=== PATIENT | female | born 1980 | race Caucasian/White ===

== ENCOUNTER → 2017-03-31 | Outpatient (CLI) | payer BC ==
--- NOTE | 2017-04-01 08:59 | MM ---
Reason for exam: screening (asymptomatic). Last mammogram was performed 7 years and 9 months ago. History: Patient is nulliparous. Family history of breast cancer in mother at age 50 and breast cancer in maternal grandmother at age 34. Taking hormonal contraceptives for 18 years beginning at age 18. Physical Findings: A clinical breast exam by your physician is recommended on an annual basis and results should be correlated with mammographic findings. MG Screening Mammo w CAD Bilateral CC and MLO view(s) were taken. Prior study comparison: June 26, 2009, mammogram, performed at [facility]. The breast tissue is heterogeneously dense. This may lower the sensitivity of mammography. No significant changes when compared with prior studies. ASSESSMENT: Benign, BI-RAD 2 RECOMMENDATION: Routine screening mammogram of both breasts at age 42. Manage on a clinical basis with regard to pain.
== END | disposition home or self-care (01) ==
LOC: RADMAMWWP 17:04
PROVIDERS: ATTEND Family Medicine
DX: Z12.31 Encounter for screening mammogram for malignant neoplasm of breast (principal); Z80.3 Family history of malignant neoplasm of breast

== ENCOUNTER → 2017-05-26 | Outpatient (CLI) | payer BC ==
[2017-05-26 14:11] VITALS: BP 120/69; PULSE 86; RESP 20; TEMP 99; BMI 43.2
--- NOTE | 2017-05-26 14:35 | P.HPBAR ---
Bariatric H&P - History & Physicial H&P Date: 05/26/17 History & Physicial: Visit/CC: pursuing bariatric surgery Patient initial contact: February 2017 Initial weight: 116.21 kg Initial weight in pounds: 256.20 Height: 5 ft 4.5 in Initial BMI: 43.2 Last weight: Current weight: 116.21 kg Current weight in pounds: 256.20 Current BMI: 43.2 Twilight body weight (based on NIH guidelines): 55.565 kg Excess body weight loss: 0.0% The patient is a 36 year-old F who presents for Bariatric Assessment. Patient presents to the clinic to discuss bariatric surgery. She went to a seminar a few months ago. The seminar was put on by Dr. Mora. She is leaning toward sleeve gastrectomy but also considering bypass at this time. She has a tried a Tuesday of weight loss modalities without success. Her primary medical concern leading to her interest in bariatric surgery is PCO S. No diabetes or high blood pressure. No known sleep apnea. She is only had 3 episodes of reflux that she can recall. Denies DVT or dysphagia. She does have friable myalgia and takes Motrin for this. She does have coworkers who have done well with the sleeve gastrectomy. She requires 7 months of supervised weight loss. She is hoping the surgery can be performed in December. Review of Systems The patient denies any acute changes in vision or hearing, no dysphagia or odynophagia, no chest pain or shortness of breath, no dysuria or hematuria, no headache, no runny nose, no rectal bleeding or melena, no unexplained weight loss Past Medical History History of Any Multi-Drug Resistant Organisms: None Reported Smoking Status: Former smoker Surgical - Exam Vital Signs Temp Pulse Resp BP 99 F 86 20 120/69 05/26/17 13:49 05/26/17 13:49 05/26/17 13:49 05/26/17 13:49 Physical exam: General: Well-developed, well-nourished HEENT: Normocephalic, sclerae nonicteric Abdomen: Nontender, nondistended Extremities: No edema Neuro: Alert and oriented Bariatric Assessment & Plan (1) Morbid obesity Narrative/Plan: The patient will continue to carefully consider the options of sleeve gastrectomy and bypass. Both surgeries and there are associated risks and benefits were discussed in detail today. I encouraged her to consider a evaluation by Dr. Mora to discuss the options of gastric bypass. In the meanwhile will begin her 6 month supervised weight loss. We'll plan for appendectomy lab work and upper endoscopy. Tentatively plan EGD in October or November of next year. Status: Acute Bariatric Checklist Checklist: Plan: Checklist: EGD: 1. Hiatal hernia: 2. H. Pylori: HgbA1c: Vitamin D: Smoking: Former smoker Primary care physician referral: Dr Coreas Psychiatry clearance: Cardiology clearance: Sleep study: Diet journal: VTE risk score: VTE risk level: Rehab needs at discharge:
== END ==
LOC: BARWHC3 13:22
PROVIDERS: ATTEND Surgery
DX: Z48.815 Encounter for surgical aftercare following surgery on the digestive system (principal); E66.01 Morbid (severe) obesity due to excess calories; F17.200 Nicotine dependence, unspecified, uncomplicated; Z98.84 Bariatric surgery status
CPT/HCPCS: 99201

== ENCOUNTER → 2017-11-22 | Outpatient (CLI) | payer BC ==
[2017-11-22 15:02] VITALS: BP 126/73; PULSE 105; RESP 16; TEMP 98; BMI 42.7
--- NOTE | 2017-11-22 16:53 | P.BASOAP ---
Subjective Progress Note Date: 11/22/17 Principal diagnosis: Morbid obesity Patient seen preoperatively for sleeve gastrectomy. Upper endoscopy is scheduled on 12/02. Dietary class scheduled on 11/28. Otherwise the patient seems to be prepared to schedule surgery. She is requesting 12/23. Objective - Vital Signs Vital signs: Vital Signs Temp 98 F 11/22/17 15:00 Pulse 105 H 11/22/17 15:00 Resp 16 11/22/17 15:00 BP 126/73 11/22/17 15:00 Pulse Ox Intake & Output 11/21/17 11/22/17 11/22/17 18:59 06:59 18:59 Weight 114.759 kg - Exam Abdomen: Soft, nontender, nondistended Assessment/Plan (1) Morbid obesity Narrative/Plan: Await upper endoscopy. Will tentatively schedule sleeve gastrectomy on 12/23. Surgical consent form and associated risks were reviewed in detail. All questions were answered. Plan: Date: 11/22/17 Initial Weight: 116.21 kg Initial BMI: 43.2 Current Weight: 114.759 kg Current BMI: 42.7 Type of Surgery: Total Volume in Band: Previous Volume: Volume Removed: Volume Added: Band Size:
== END ==
LOC: BARWHC3 13:44
PROVIDERS: ATTEND Surgery
DX: E66.01 Morbid (severe) obesity due to excess calories (principal); Z68.41 Body mass index [BMI] 40.0-44.9, adult
CPT/HCPCS: 99211

== ENCOUNTER → 2017-11-28 | Outpatient (CLI) | payer BC ==
[2017-11-28 08:58] VITALS: BMI 42.1
== END | disposition home or self-care (01) ==
LOC: BARWHC3 08:30
PROVIDERS: ATTEND Surgery
DX: E66.01 Morbid (severe) obesity due to excess calories (principal)
CPT/HCPCS: 97804

== ENCOUNTER → 2017-11-28 | Outpatient (CLI) | payer BC ==
[2017-11-28 13:17] LABS: Basophils % (A) 0 %; Eosinophils # (A) 0.1 k/uL (0-0.7); Eosinophils % (A) 1 %; HCT 41.4 % (34.0-46.0); HGB 13.4 gm/dL (11.4-16.0); Lymphocytes # (A) 3.2 k/uL (1.0-4.8); Lymphocytes % (A) 25 %; MCH 27.4 pg (25.0-35.0); MCHC 32.5 g/dL (31.0-37.0); MCV 84.2 fL (80.0-100.0); Mean Platelet Volume 6.6; Monocytes # (A) 0.4 k/uL (0-1.0); Monocytes % (A) 3 %; Neutrophils # (A) 8.8 k/uL (1.3-7.7); Neutrophils % (A) 70 %; Platelet Count 374 k/uL (150-450); RBC 4.91 m/uL (3.80-5.40); RDW 14.2 % (11.5-15.5); WBC 12.7 k/uL (3.8-10.6)
[2017-11-28 13:21] LABS: ALT 32 U/L (9-52); AST 21 U/L (14-36); Albumin 4.4 g/dL (3.5-5.0); Alkaline Phosphatase 90 U/L (38-126); Anion Gap 10 mmol/L; Blood Urea Nitrogen 13 mg/dL (7-17); Calcium 10.8 mg/dL (8.4-10.2); Carbon Dioxide 29 mmol/L (22-30); Chloride 101 mmol/L (98-107); Glucose 79 mg/dL (74-99); Potassium 4.9 mmol/L (3.5-5.1); Sodium 140 mmol/L (137-145); Total Bilirubin 0.3 mg/dL (0.2-1.3); Total Protein 7.6 g/dL (6.3-8.2)
== END | disposition home or self-care (01) ==
LOC: LABPAT 12:41
PROVIDERS: ATTEND Surgery
DX: Z01.812 Encounter for preprocedural laboratory examination (principal); Z01.818 Encounter for other preprocedural examination
CPT/HCPCS: 36415; 80053; 85025; 93005

== ENCOUNTER 2017-12-02 07:41 | Day surgery (SDC) | payer BC ==
[2017-11-29 13:12] VITALS: BMI 44.1
[~2017-12-02 07:41] MED LIST: LACTATED RINGERS 1,000 ML IV SCH
[2017-12-02 08:22] VITALS: RESP 18; TEMP 98.5
[2017-12-02] MEDS ORDERED: LIDOCAINE 1% INJ 10MG/ML (20 ML MDV) ONE (09:44)
[2017-12-02] MEDS ORDERED: PROPOFOL 10 MG/ML 20 ML VIAL IV ONE (09:44)
--- NOTE | 2017-12-02 09:47 | P.GSHP ---
History of Present Illness H&P Date: 12/02/17 Chief Complaint: GERD, obesity Patient here today for upper endoscopy. She has had a few episodes of reflux in the past. She is scheduled for sleeve gastrectomy on 12/23. Denies dysphagia. Past Medical History Past Medical History: Fibromyalgia, Hyperlipidemia Additional Past Medical History / Comment(s): PCOS History of Any Multi-Drug Resistant Organisms: None Reported Past Surgical History: No Surgical Hx Reported Past Anesthesia/Blood Transfusion Reactions: No Reported Reaction Additional Past Anesthesia/Blood Transfusion Reaction / Comment(s): PATIENT HAS NEVER HAD ANESTHESIA IN THE PAST Smoking Status: Former smoker - Past Family History Mother Family Medical History: No Reported History Medications and Allergies Home Medications Medication Instructions Recorded Confirmed Type Citalopram Hydrobromide [CeleXA] 20 mg PO HS 11/29/17 12/02/17 History Ergocalciferol (Vitamin D2) 50,000 units PO WE 11/29/17 12/02/17 History [Vitamin D2] Fexofenadine HCl [Anel Allergy] 180 mg PO HS 11/29/17 12/02/17 History Ibuprofen [Motrin] 800 mg PO TID 11/29/17 12/02/17 History Norgestimate-Ethinyl Estradiol 1 tab PO HS 11/29/17 12/02/17 History [Sprintec 28 Day Tablet] Simvastatin [Zocor] 10 mg PO HS 11/29/17 12/02/17 History Spironolactone [Aldactone] 25 mg PO HS 11/29/17 12/02/17 History lamoTRIgine [LaMICtal Odt] 100 mg PO HS 11/29/17 12/02/17 History Allergies Allergy/AdvReac Type Severity Reaction Status Date / Time No Known Allergies Allergy Verified 12/02/17 08:23 Surgical - Exam Vital Signs Temp Pulse Resp BP Pulse Ox 98.5 F 85 18 119/79 94 L 12/02/17 08:21 12/02/17 08:21 12/02/17 08:21 12/02/17 08:21 12/02/17 08:21 Physical exam: General: Well-developed, well-nourished HEENT: Normocephalic, sclerae nonicteric Abdomen: Nontender, nondistended Extremities: No edema Neuro: Alert and oriented Assessment and Plan (1) GERD (gastroesophageal reflux disease) Narrative/Plan: Will proceed with upper endoscopy at this time. Current Visit: Yes Status: Acute Code(s): K21.9 - GASTRO-ESOPHAGEAL REFLUX DISEASE WITHOUT ESOPHAGITIS SNOMED Code(s): 851520852
--- NOTE | 2017-12-02 09:57 | P.PCN ---
Date of Procedure: 12/02/17 Procedure(s) Performed: Preoperative Dx: GERD, presurgical Postoperative Dx: Mild gastritis Procedure: EGD with Bx Anesthesia: Sedation Endoscopist: Dr. Gomes Specimens: Antrum Endoscopic Procedure: The patient was on the endoscopy table in the left decubitus position. The Olympus gastroscope was inserted into the oropharynx and passed under direct visualization to the region of the third portion of the duodenum. From that point the scope was slowly withdrawn inspecting all surfaces carefully. There were no neoplastic inflammatory or polypoid lesions throughout the duodenum. The pylorus was widely patent. The stomach was carefully inspected. There was mild gastritis present. A biopsy of the antrum took place to rule out H. pylori. Retroflexion revealed a normal hiatus. The esophagus was then carefully examined. There were no neoplastic inflammatory or polypoid lesions throughout the visualized esophagus. The patient was then taken to the recovery room in stable condition per anesthesia guidelines. Recommendations: Await biopsies results. Proceed with sleeve gastrectomy.
[2017-12-02 10:43] VITALS: BP 109/69; PULSE 80
== END 2017-12-02 10:45 | disposition home or self-care (01) ==
LOC: ORWHC2ENDO 07:41
PROVIDERS: ATTEND Surgery
DX: K21.9 Gastro-esophageal reflux disease without esophagitis (principal); E66.9 Obesity, unspecified; E78.5 Hyperlipidemia, unspecified; M79.7 Fibromyalgia; E28.2 Polycystic ovarian syndrome; F31.9 Bipolar disorder, unspecified; Z87.891 Personal history of nicotine dependence; Z79.899 Other long term (current) drug therapy; Z68.41 Body mass index [BMI] 40.0-44.9, adult
CPT/HCPCS: 81025; 88305; 43239; J2001; J2704

== ENCOUNTER 2017-12-23 08:41 | Inpatient (IN) | payer BC ==
[~2017-12-23 08:41] MED LIST changes: +DEXAMETHASONE SOD PHOSPHATE 10 MG/ML 1 ML VIAL IV ONE; +ENOXAPARIN 40 MG/0.4 ML SYRINGE SQ ONE; -LACTATED RINGERS 1,000 ML IV SCH; +MIDAZOLAM 2 MG/2 ML VIAL IV PRN; +ONDANSETRON 4 MG/2 ML VIAL IVP ONE; +SCOPOLAMINE 1.5MG/72HR PATCH TRANSDERM ONE; +ceFAZolin IN SWFI 2 GM/20 ML SYRINGE IVP ONE
[2017-12-23] MEDS: LACTATED RINGERS 1,000 ML IV SCH (10:11)
--- NOTE | 2017-12-23 10:19 | P.GSHP ---
History of Present Illness H&P Date: 12/23/17 Chief Complaint: Morbid obesity 37-year-old female known to our service. Here today for sleeve gastrectomy. Patient has a history of PCOS. Recent upper endoscopy showed mild gastritis. No history of DVT or dysphagia. Please refer to bariatric H&P for additional details. Past Medical History Past Medical History: Fibromyalgia Additional Past Medical History / Comment(s): PCOS History of Any Multi-Drug Resistant Organisms: None Reported Past Surgical History: No Surgical Hx Reported Additional Past Surgical History / Comment(s): EGD Past Anesthesia/Blood Transfusion Reactions: No Reported Reaction Additional Past Anesthesia/Blood Transfusion Reaction / Comment(s): PATIENT HAS NEVER HAD ANESTHESIA IN THE PAST Smoking Status: Former smoker - Past Family History Mother Family Medical History: No Reported History Medications and Allergies Home Medications Medication Instructions Recorded Confirmed Type Citalopram Hydrobromide [CeleXA] 20 mg PO HS 11/29/17 12/23/17 History Ergocalciferol (Vitamin D2) 50,000 units PO WE 11/29/17 12/23/17 History [Vitamin D2] Fexofenadine HCl [Anel Allergy] 180 mg PO HS 11/29/17 12/23/17 History Ibuprofen [Motrin] 800 mg PO TID 11/29/17 12/23/17 History Norgestimate-Ethinyl Estradiol 1 tab PO HS 11/29/17 12/23/17 History [Sprintec 28 Day Tablet] Simvastatin [Zocor] 10 mg PO HS 11/29/17 12/23/17 History Spironolactone [Aldactone] 25 mg PO HS 11/29/17 12/23/17 History lamoTRIgine [LaMICtal Odt] 100 mg PO HS 11/29/17 12/23/17 History Acetaminophen Tab [Tylenol Tab] 500 mg PO Q6H PRN 12/23/17 12/23/17 History Allergies Allergy/AdvReac Type Severity Reaction Status Date / Time adhesive tape AdvReac redness Verified 12/23/17 10:00 Surgical - Exam Vital Signs Temp Pulse Resp BP Pulse Ox 97.8 F 79 16 125/77 93 L 12/23/17 10:12 12/23/17 10:12 12/23/17 10:12 12/23/17 10:12 12/23/17 10:12 Physical exam: General: Well-developed, well-nourished HEENT: Normocephalic, sclerae nonicteric Abdomen: Nontender, nondistended Extremities: No edema Neuro: Alert and oriented Assessment and Plan (1) Morbid obesity Narrative/Plan: Will proceed with sleeve gastrectomy. Risks of bleeding, infection, stenosis, leak, abscess, fistula, peritonitis, poor weight loss, reflux, DVT, OK, and . Patient understands and wishes to proceed. Current Visit: No Status: Acute Code(s): E66.01 - MORBID (SEVERE) OBESITY DUE TO EXCESS CALORIES SNOMED Code(s): 878722579
[2017-12-23] MEDS ORDERED: BUPIVACAINE (PF) 0.25% 30 ML VIAL SQ ONE (10:45)
[2017-12-23] MEDS ORDERED: NEOSTIGMINE 1 MG/ML 10 ML VIAL ONE (10:46)
[2017-12-23] MEDS ORDERED: KETOROLAC 30 MG/ML 1 ML VIAL ONE (10:46)
[2017-12-23] MEDS ORDERED: MIDAZOLAM 2 MG/2 ML VIAL ONE (10:46)
[2017-12-23] MEDS ORDERED: SUCCINYLCHOLINE CHLORIDE 100 MG/5 ML SYR IV ONE (10:46)
[2017-12-23] MEDS ORDERED: PROPOFOL 10 MG/ML 20 ML VIAL IV ONE (10:46)
[2017-12-23] MEDS ORDERED: ceFAZolin IN SWFI 2 GM/20 ML SYRINGE IVP ONE ×2 (10:46→10:48)
[2017-12-23] MEDS ORDERED: ROCURONIUM BROMIDE 10 MG/ML 10 ML VIAL IV ONE (10:46)
[2017-12-23] MEDS ORDERED: fentaNYL (PF) 50 MCG/ML 2 ML AMP ONE (10:46)
[2017-12-23] MEDS ORDERED: GLYCOPYRROLATE 0.2 MG/ML 2 ML VIAL ONE (10:46)
[2017-12-23] MEDS ORDERED: LACTATED RINGERS 1,000 ML IV ONE (12:00)
[2017-12-23] MEDS ORDERED: ONDANSETRON 4 MG/2 ML VIAL IVP PRN (12:43)
[2017-12-23] MEDS ORDERED: NALOXONE 0.4 MG/ML 1 ML VIAL IV PRN (12:43)
--- NOTE | 2017-12-23 12:43 | P.OP ---
Date of Procedure: 12/23/17 Procedure(s) Performed: PREOPERATIVE DIAGNOSIS: Morbid obesity, PCOS POSTOPERATIVE DIAGNOSIS: Same PROCEDURE: Laparoscopic sleeve gastrectomy SURGEON: Mireya EBL: Minimal ANESTHESIA: General COMPLICATIONS: None OPERATIVE PROCEDURE: Patient was placed in the operating table in the supine position. She was placed under general anesthesia at that time. The abdomen was prepped and draped in sterile fashion after the patient was placed in lithotomy. A 5 mm optical trocar was used to enter the abdominal cavity in the left upper quadrant. Insufflation took place to 15 millimeters mercury. An additional right subxiphoid 5 mm trocar was then placed under direct visualization and then removed. 2 additional 5 mm trochars were placed in the right upper quadrant and left upper quadrant under direct visualization and a 15 mm trocar in the supraumbilical location. The liver was retracted using a medium Jasvir liver retractor through the right subxiphoid trocar site. The hiatus was inspected. The patient had no visible hiatal hernia At that point I moved to the mid aspect of the greater curvature the stomach. The short gastric vasculature was divided using a LigaSure device proximally. I then switched and divided the short gastrics distally to a 3-4 cm from the pylorus. The dissection took place up to the left diaphragmatic crura at that point. The posterior short gastrics were likewise divided using the LigaSure device. Once the stomach was fully mobilized the blunt tipped 40-Latvian bougie dilator was advanced into the stomach and advanced all the way to the prepyloric location. A black echelon 60 stapler was utilized and fired tangentially across the antrum taking care to avoid narrowing at the incisura angularis. Subsequent firings of the stapler took place. A total of 4 green echelon 60 staplers with seam guard took place proximally staying on the outer edge of our dilator. Once we reached the most proximal portion of the stomach a single firing of the gold echelon 60 stapler without seen guard took place. The oral gastric tube was reinserted. The stomach was insufflated with approximately 100 mL of methylene blue. No evidence of leak or obstruction was seen. The distal aspect of the sleeve was then reapproximated to the gastrosplenic and gastrocolic ligament using a short running 2-0 strata fix suture. This was done to prevent kinking or twisting of the sleeve. It should be noted that along the staple line there were 2-3 small areas of bleeding controlled using the 12 mm clipper. The stomach remnant was removed from the 15 mm trocar site without difficulty. The fascia at the 15 more site was closed using interrupted 0 Vicryl sutures with the laparoscopic suture passer and Jose Marika technique. The insufflation was evacuated. The skin at all 5 incisions were closed using 4-0 Monocryl sutures. Steri-Strips and sterile dressings were then applied. DISPOSITION: Stable to recovery room
[2017-12-23] MEDS ORDERED: diphenhydrAMINE 50 MG/ML 1 ML VIAL IVP PRN (12:49)
[2017-12-23] MEDS ORDERED: SIMETHICONE 40 MG/0.6 ML DROPS 2,000 MG/30 ML BOTTLE PO PRN (12:49)
[2017-12-23] MEDS: fentaNYL (PF) 50 MCG/ML 2 ML AMP IV PRN ×4 (13:00→13:25)
[2017-12-23 13:07] VITALS: BMI 42.3
[2017-12-23] MEDS ORDERED: MEPERIDINE 50 MG/ML SYRINGE IVP ONE (13:38)
[2017-12-23] MEDS: ACETAMINOPHEN IV (For NPO) 1,000 MG in EMPTY BAG 1 BAG IVPB ONE ×2 (13:45→14:00)
[2017-12-23] MEDS: 0.9% NACL WITH KCL 20 MEQ/L 1,000 ML IV SCH ×2 (14:33→22:48)
[2017-12-23] MEDS: MORPHINE SULFATE 4MG/4ML SYRG IVP PRN ×3 (14:35→22:48)
[2017-12-23] MEDS: KETOROLAC 30 MG/ML 1 ML VIAL IVP SCH ×2 (14:36→17:16)
[2017-12-23] MEDS: ALBUTEROL NEBULIZED 2.5 MG/3 ML INHALATION SCH ×2 (16:22→20:39)
[2017-12-23] MEDS: HYOSCYAMINE ORAL DROPS 1.875 MG/15 ML BOTTLE PO PRN (16:36)
[2017-12-24] MEDS: KETOROLAC 30 MG/ML 1 ML VIAL IVP SCH ×5 (00:41→23:08)
[2017-12-24] MEDS: 0.9% NACL WITH KCL 20 MEQ/L 1,000 ML IV SCH (03:16)
[2017-12-24] MEDS: LACTATED RINGERS 1,000 ML IV SCH (05:08)
[2017-12-24] MEDS: ALBUTEROL NEBULIZED 2.5 MG/3 ML INHALATION SCH ×4 (07:38→20:31)
[2017-12-24 07:56] LABS: Anion Gap 11 mmol/L; Blood Urea Nitrogen 10 mg/dL (7-17); Calcium 8.7 mg/dL (8.4-10.2); Carbon Dioxide 26 mmol/L (22-30); Chloride 104 mmol/L (98-107); Phosphorus 3.2 mg/dL (2.5-4.5); Potassium 4.8 mmol/L (3.5-5.1); Sodium 141 mmol/L (137-145)
[2017-12-24 07:59] LABS: Basophils % (A) 0 %; Eosinophils % (A) 0 %; HCT 38.5 % (34.0-46.0); HGB 12.4 gm/dL (11.4-16.0); Lymphocytes # (A) 2.7 k/uL (1.0-4.8); Lymphocytes % (A) 19 %; MCH 26.7 pg (25.0-35.0); MCHC 32.1 g/dL (31.0-37.0); MCV 83.2 fL (80.0-100.0); Mean Platelet Volume 6.6; Monocytes # (A) 0.7 k/uL (0-1.0); Monocytes % (A) 5 %; Neutrophils # (A) 10.6 k/uL (1.3-7.7); Neutrophils % (A) 75 %; Platelet Count 334 k/uL (150-450); RBC 4.63 m/uL (3.80-5.40); RDW 13.5 % (11.5-15.5)
--- NOTE | 2017-12-24 08:28 | FL ---
EXAMINATION TYPE: FL UGI DATE OF EXAM ORDERED: 12/24/2017 8:25 AM HISTORY: Status post gastric sleeve procedure. COMPARISON: None. FINDINGS: The patient drank contrast with ease. There was prompt egress of contrast from the esophag us into the gastric sleeve. Ligament of Treitz is in normal location. There is no evidence of obstruc tion or significant free air. IMPRESSION: STATUS POST GASTRIC SLEEVE PROCEDURE.
[2017-12-24] MEDS: PANTOPRAZOLE 40 MG/10 ML VIAL IV SCH (08:51)
[2017-12-24] MEDS: ENOXAPARIN 40 MG/0.4 ML SYRINGE SQ SCH ×2 (08:51→21:05)
[2017-12-24] MEDS: MORPHINE SULFATE 4MG/4ML SYRG IVP PRN (09:42)
[2017-12-24] MEDS ORDERED: HYDROcodone/APAP 7.5-325MG 1 EACH TAB PO PRN (11:19)
--- NOTE | 2017-12-24 11:39 | P.PN ---
Progress Note - Text Progress Note Date: 12/24/17 The patient resting comfortably in her bed. She has had her swallow esophagram performed this morning. There is known to oblique obstruction. The patient is complaining about the morphine giving her a funny feeling. She is wishing switched to Toradol. Her white count 14. Vital signs are stable. Her abdomen soft. Incision sites are clean and intact. Patient will try Toradol for pain control. She did placed a clear liquid diet. She'll be discharged home tomorrow.
[2017-12-24] MEDS: 1: MVI, ADULT NO.4 WITH VIT K 10 ML, THIAMINE 100 MG, FOLIC ACID 1 MG, POTASSIUM CHLORID IV SCH ×12 (11:53→22:32)
[2017-12-24] MEDS ORDERED: ACETAMINOPHEN TAB 500 MG TAB PO PRN (15:59)
--- NOTE | 2017-12-24 16:59 | P.CONS ---
History of Present Illness - Reason for Consult Leukocytosis - History of Present Illness Patient is a very pleasant 37-year-old female admitted for laparoscopic sleeve gastrectomy patient successfully underwent surgery postoperative day one patient denied any vomiting fever chills does have some belching and nausea denied any significant abdominal discomfort patient denied dysuria cough runny nose. Patient is on Lamictal for bipolar disorder and Celexa for depression and bipolar. Patient also on OC pills and all that on for PCO S. Review of Systems REVIEW OF SYSTEMS: CONSTITUTIONAL: No fever, no malaise, no fatigue. HEENT: No recent visual problems or hearing problems. Denied any sore throat. CARDIOVASCULAR: No chest pain, orthopnea, PND, no palpitations, no syncope. PULMONARY: No shortness of breath, no cough, no hemoptysis. GASTROINTESTINAL: No diarrhea, no nausea, no vomiting, no abdominal pain. Normoactive bowel sounds. NEUROLOGICAL: No headaches, no weakness, no numbness. HEMATOLOGICAL: Denies any bleeding or petechiae. GENITOURINARY: Denies any burning micturition, frequency, or urgency. MUSCULOSKELETAL/RHEUMATOLOGICAL: Denies any joint pain, swelling, or any muscle pain. ENDOCRINE: Denies any polyuria or polydipsia. The rest of the 14-point review of systems is negative. Past Medical History Past Medical History: Fibromyalgia Additional Past Medical History / Comment(s): PCOS History of Any Multi-Drug Resistant Organisms: None Reported Past Surgical History: No Surgical Hx Reported Additional Past Surgical History / Comment(s): EGD Past Anesthesia/Blood Transfusion Reactions: No Reported Reaction Additional Past Anesthesia/Blood Transfusion Reaction / Comm: PATIENT HAS NEVER HAD ANESTHESIA IN THE PAST Past Psychological History: No Psychological Hx Reported Smoking Status: Former smoker Past Alcohol Use History: None Reported Additional Past Alcohol Use History / Comment(s): QUIT SMOKING 11 YEARS AGO Past Drug Use History: None Reported - Past Family History Mother Family Medical History: No Reported History Medications and Allergies Home Medications Medication Instructions Recorded Confirmed Type Citalopram Hydrobromide [CeleXA] 20 mg PO HS 11/29/17 12/23/17 History Ergocalciferol (Vitamin D2) 50,000 units PO WE 11/29/17 12/23/17 History [Vitamin D2] Fexofenadine HCl [Anel Allergy] 180 mg PO HS 11/29/17 12/23/17 History Ibuprofen [Motrin] 800 mg PO TID 11/29/17 12/23/17 History Norgestimate-Ethinyl Estradiol 1 tab PO HS 11/29/17 12/23/17 History [Sprintec 28 Day Tablet] Simvastatin [Zocor] 10 mg PO HS 11/29/17 12/23/17 History Spironolactone [Aldactone] 25 mg PO HS 11/29/17 12/23/17 History lamoTRIgine [LaMICtal Odt] 100 mg PO HS 11/29/17 12/23/17 History Acetaminophen Tab [Tylenol Tab] 500 mg PO Q6H PRN 12/23/17 12/23/17 History Hydrocodone/Acetaminophen [Cherry 1 - 2 each PO Q4HR PRN #20 tab 12/23/17 Rx 5-325] Omeprazole [PriLOSEC] 20 mg PO AC-BRKFST #90 cap 12/23/17 Rx Allergies Allergy/AdvReac Type Severity Reaction Status Date / Time adhesive tape AdvReac redness Verified 12/23/17 13:28 Physical Exam Vitals: Vital Signs Temp Pulse Pulse Resp BP Pulse Ox 12/24/17 14:50 99 F 65 18 116/62 95 12/24/17 08:35 99.1 F 69 18 114/65 96 12/24/17 08:04 95 12/24/17 07:39 98 12/24/17 00:09 96 12/24/17 00:00 98.4 F 94 16 142/80 94 L 12/23/17 20:54 95 12/23/17 20:53 90 12/23/17 20:40 88 12/23/17 20:00 98.6 F 96 16 140/76 94 L Intake and Output 12/24/17 12/24/17 12/24/17 06:59 14:59 22:59 Intake Total 800 Output Total 225 Balance -225 800 Intake: Intake, IV Titration 800 Amount 0.9% NaCl with KCl 20 Meq 800 /l 1,000 ml @ 100 mls/hr IV .BY D[facility] Rx#: [id number] Output: Urine 225 Other: # Voids 0 Weight 108.4 kg PHYSICAL EXAMINATION: GENERAL: The patient is alert and oriented x3, not in any acute distress. Obese HEENT: Pupils are round and equally reacting to light. EOMI. No scleral icterus. No conjunctival pallor. Normocephalic, atraumatic. No pharyngeal erythema. No thyromegaly. CARDIOVASCULAR: S1 and S2 present. No murmurs, rubs, or gallops. PULMONARY: Chest is clear to auscultation, no wheezing or crackles. ABDOMEN: Soft, nontender, nondistended, normoactive bowel sounds. No palpable organomegaly. MUSCULOSKELETAL: No joint swelling or deformity. EXTREMITIES: No cyanosis, clubbing, or pedal edema. NEUROLOGICAL: Gross neurological examination did not reveal any focal deficits. SKIN: No rashes. Results CBC & Chem 7: 12/24/17 06:55 12/24/17 06:55 Labs: Abnormal Lab Results - Last 24 Hours (Table) 12/24/17 Range/Units 06:55 WBC 14.0 H (3.8-10.6) k/uL Neutrophils # 10.6 H (1.3-7.7) k/uL Assessment and Plan Plan: -Laparoscopic sleeve gastrectomy: Postoperative day 1, pain management and due to prophylaxis per primary service. -Leukocytosis without any signs or symptoms of infection probably reactive in nature, no further intervention at this time -Bipolar disorder patient will be resumed on Lamictal and Celexa. -Polycystic ovarian disease -Hyperlipidemia -Gastroesophageal reflux disease 4 omission chronic medical problems patient will be resumed on appropriate home medications
[2017-12-24] MEDS: HYOSCYAMINE ORAL DROPS 1.875 MG/15 ML BOTTLE PO PRN (18:04)
[2017-12-24] MEDS: ALPRAZolam 0.25 MG TAB PO PRN (18:13)
[2017-12-24] MEDS: ATORVASTATIN 10 MG TAB PO SCH (21:05)
[2017-12-24] MEDS: SPIRONOLACTONE 25 MG TAB PO SCH (21:05)
[2017-12-24] MEDS: CITALOPRAM HYDROBROMIDE 20 MG TAB PO SCH (21:05)
[2017-12-24] MEDS: LORATADINE 10 MG TAB PO SCH (21:05)
[2017-12-24] MEDS: lamoTRIgine 100 MG TAB PO SCH (21:05)
[2017-12-24] MEDS: NORGESTIMATE-ETHINYL ESTRADIOL 1 EACH TABLET PO SCH (21:12)
[2017-12-25] MEDS: KETOROLAC 30 MG/ML 1 ML VIAL IVP SCH ×2 (04:20→12:42)
[2017-12-25] MEDS: ALBUTEROL NEBULIZED 2.5 MG/3 ML INHALATION SCH ×4 (07:38→18:45)
[2017-12-25] MEDS ORDERED: BISACODYL 5 MG TABLET.DR PO PRN (08:00)
[2017-12-25] MEDS: Acetaminophen-Codeine 300-30mg TAB PO PRN ×3 (09:25→20:09)
[2017-12-25] MEDS: ENOXAPARIN 40 MG/0.4 ML SYRINGE SQ SCH ×2 (09:26→20:11)
[2017-12-25] MEDS: PANTOPRAZOLE 40 MG/10 ML VIAL IV SCH (09:26)
--- NOTE | 2017-12-25 10:41 | P.PN ---
Progress Note - Text Progress Note Date: 12/25/17 The patient states he feels better. She was requesting a different pain medication this morning. She was switched to Tylenol 3. She's had limited oral intake. On exam her vital signs are stable. Her abdomen soft. Status post sleeve gastric. Patient will remain in the hospital today. She is appears and blade and increase her oral intake.
[2017-12-25 11:16] VITALS: RESP 16
[2017-12-25] MEDS: 1: MVI, ADULT NO.4 WITH VIT K 10 ML, THIAMINE 100 MG, FOLIC ACID 1 MG, POTASSIUM CHLORID IV SCH ×12 (12:43→19:51)
[2017-12-25] MEDS: lamoTRIgine 100 MG TAB PO SCH (20:10)
[2017-12-25] MEDS: SPIRONOLACTONE 25 MG TAB PO SCH (20:10)
[2017-12-25] MEDS: CITALOPRAM HYDROBROMIDE 20 MG TAB PO SCH (20:10)
[2017-12-25] MEDS: ATORVASTATIN 10 MG TAB PO SCH (20:10)
[2017-12-25] MEDS: LORATADINE 10 MG TAB PO SCH (20:10)
[2017-12-25] MEDS: NORGESTIMATE-ETHINYL ESTRADIOL 1 EACH TABLET PO SCH (20:12)
[2017-12-26] MEDS: 1: MVI, ADULT NO.4 WITH VIT K 10 ML, THIAMINE 100 MG, FOLIC ACID 1 MG, POTASSIUM CHLORID IV SCH ×18 (01:38→14:24)
[2017-12-26] MEDS: ALBUTEROL NEBULIZED 2.5 MG/3 ML INHALATION SCH ×3 (08:14→16:14)
[2017-12-26] MEDS: ENOXAPARIN 40 MG/0.4 ML SYRINGE SQ SCH (10:05)
[2017-12-26] MEDS: PANTOPRAZOLE 40 MG/10 ML VIAL IV SCH (10:05)
[2017-12-26] MEDS: ALPRAZolam 0.25 MG TAB PO PRN (10:10)
[2017-12-26] MEDS: Acetaminophen-Codeine 300-30mg TAB PO PRN (11:25)
--- NOTE | 2017-12-26 13:22 | P.DS ---
<Carmen Kumar M - Last Filed: 12/26/17 13:10> Providers Date of admission: 12/23/17 08:41 Expected date of discharge: 12/26/17 Attending physician: Rehan Gomes Consults: 12/23/17 12:49 Consult Physician Routine Consulting Provider: Isael Taylor Consult Reason/Comments: Medical management Do you want consulting provider notified?: Yes Primary care physician: [facility] Course: 37-year-old female who presented on an elective admission to undergo a sleep gastrectomy for morbid obesity procedure was done on December 23. Patient had a swallow esophagram done postprocedure showed no obstruction. No leak. Postprocedure patient was not able to tolerate the morphine. Patient stated she felt nauseated decreased oral intake. The morphine was switched to Toradol. Patient stated felt better and was asking for different pain medication on the . This was switched to Tylenol No. 3 oral intake increased on December 26 was felt to be hemodynamically stable and appropriate to proceed with a discharge Pain medication effective for pain control Impression discharge diagnoses Morbid obesity BMI 42 A recent EGD showed mild gastritis Laparoscopic sleeve gastrectomy for morbid obesity done on December 23 The above impression and plan of care have been discussed and directed by signing physician. Carmen Kumar nurse practitioner acting as scribe for signing physician. Plan - Discharge Summary Discharge Rx Participant: Yes New Discharge Prescriptions: New Omeprazole [PriLOSEC] 20 mg PO AC-BRKFST #90 cap Acetaminophen-Codeine 300-30mg [Tylenol w/codeine #3] 1 each PO Q6HR PRN #15 tab PRN Reason: Pain Continue lamoTRIgine [LaMICtal Odt] 100 mg PO HS Fexofenadine HCl [Anel Allergy] 180 mg PO HS Simvastatin [Zocor] 10 mg PO HS Norgestimate-Ethinyl Estradiol [Sprintec 28 Day Tablet] 1 tab PO HS Citalopram Hydrobromide [CeleXA] 20 mg PO HS Spironolactone [Aldactone] 25 mg PO HS Ibuprofen [Motrin] 800 mg PO TID Ergocalciferol (Vitamin D2) [Vitamin D2] 50,000 units PO WE Acetaminophen Tab [Tylenol] 500 mg PO Q6H PRN PRN Reason: Pain Discharge Medication List Citalopram Hydrobromide [CeleXA] 20 mg PO HS 11/29/17 [History] Ergocalciferol (Vitamin D2) [Vitamin D2] 50,000 units PO WE 11/29/17 [History] Fexofenadine HCl [Anel Allergy] 180 mg PO HS 11/29/17 [History] Ibuprofen [Motrin] 800 mg PO TID 11/29/17 [History] Norgestimate-Ethinyl Estradiol [Sprintec 28 Day Tablet] 1 tab PO HS 11/29/17 [ History] Simvastatin [Zocor] 10 mg PO HS 11/29/17 [History] Spironolactone [Aldactone] 25 mg PO HS 11/29/17 [History] lamoTRIgine [LaMICtal Odt] 100 mg PO HS 11/29/17 [History] Acetaminophen Tab [Tylenol] 500 mg PO Q6H PRN 12/23/17 [History] Omeprazole [PriLOSEC] 20 mg PO AC-BRKFST #90 cap 12/23/17 [Rx] Acetaminophen-Codeine 300-30mg [Tylenol w/codeine #3] 1 each PO Q6HR PRN #15 tab 12/26/17 [Rx] Follow up Appointment(s)/Referral(s): [facility] [NON-STAFF] - 01/03/18 1:30 pm (Appointment set with Dr. Gomes) Activity/Diet/Wound Care/Special Instructions: No tub bath for six weeks. Shower daily. No lifting over 10 pounds for the next 6 weeks. Bariatric clear diet May use ice packs to surgical site. No driving while taking narcotic for pain. Discharge Disposition: HOME SELF-CARE <Rehan Gomes - Last Filed: 12/26/17 15:32> - Discharge Diagnosis(es) (1) Morbid obesity Current Visit: Yes Status: Acute Hospital Course: As above. Patient doing well at this time. Tolerating diet. Pain is well- controlled. We'll discharge home with Prilosec and Tylenol No. 3. Follow-up in the office in one week.
[2017-12-26 15:23] VITALS: BP 111/69; PULSE 70; TEMP 97.6
== END 2017-12-26 16:06 | disposition home or self-care (01) | DRG 621 ==
LOC: 2ORMAIN 08:41 → 3SUR 12:46
PROVIDERS: ADMIT Surgery; ATTEND Surgery
PROC: 0DB64Z3 Excision of Stomach, Percutaneous Endoscopic Approach, Vertical (ICD-10-PCS; principal; 2017-12-23 10:35)
DX: E66.01 Morbid (severe) obesity due to excess calories (principal); E28.2 Polycystic ovarian syndrome; Z68.41 Body mass index [BMI] 40.0-44.9, adult; K29.70 Gastritis, unspecified, without bleeding; M79.7 Fibromyalgia; F31.9 Bipolar disorder, unspecified; K21.9 Gastro-esophageal reflux disease without esophagitis; E78.5 Hyperlipidemia, unspecified; R11.0 Nausea; T40.2X5A Adverse effect of other opioids, initial encounter; Z79.899 Other long term (current) drug therapy; Z79.1 Long term (current) use of non-steroidal anti-inflammatories (NSAID); Z91.048 Other nonmedicinal substance allergy status; Z87.891 Personal history of nicotine dependence
CPT/HCPCS: 74240; 80051; 81025; 82310; 82565; 83735; 84100; 84520; 85025; 88307; 94640; 94760; 94762

== ENCOUNTER → 2018-01-03 | Outpatient (CLI) | payer BC ==
[2018-01-03 13:45] VITALS: BP 133/92; PULSE 111; RESP 16; BMI 38.3
[2018-01-03 14:19] VITALS: TEMP 98.9
--- NOTE | 2018-01-03 14:52 | P.BASOAP ---
Subjective Progress Note Date: 01/03/18 Principal diagnosis: Morbid obesity Patient had surgery approximately 1.5 weeks ago. She has had some nausea over the last 2 days. Denies any significant pain. She admits some mild discomfort at the umbilicus when she is leaning back. No fevers or chills. No vomiting. Had heartburn one time a few days ago. She took her PPI only once at that time and did not know this medication was to be taken daily. Heart rate today 111 although her heart rate preoperatively in November was 105. She is afebrile. She is taking and 60 g per day of protein and over 64 ounces of liquids. Most of her liquids in the form of water. She did return to work approximately one week postop feels tired at this time. Objective - Vital Signs Vital signs: Vital Signs Temp 98.9 F 01/03/18 13:42 Pulse 111 H 01/03/18 13:42 Resp 16 01/03/18 13:42 BP 133/92 01/03/18 13:42 Pulse Ox Intake & Output 01/02/18 01/03/18 01/03/18 18:59 06:59 18:59 Weight 102.965 kg - Exam Abdomen: Soft, nondistended, mild incisional tenderness, mild ecchymosis at incision sites and also at the Lovenox shot site in the right lower quadrant Assessment/Plan (1) Morbid obesity Narrative/Plan: Overall patient doing fairly well. We'll provide Zofran for symptoms of nausea. Patient will replace her water intake with Pedialyte or sports drink to provide better electrolyte balance. We'll keep her off of work until this coming Tuesday. We'll plan follow-up in 2 weeks. Patient will contact me with any persistent nausea or vomiting. Plan: Date: 01/03/18 Initial Weight: 116.21 kg Initial BMI: 43.2 Current Weight: 102.965 kg Current BMI: 38.3 Type of Surgery: Total Volume in Band: Previous Volume: Volume Removed: Volume Added: Band Size:
== END | disposition home or self-care (01) ==
LOC: BARWHC3 13:34
PROVIDERS: ATTEND Surgery
DX: E66.01 Morbid (severe) obesity due to excess calories (principal); Z68.38 Body mass index [BMI] 38.0-38.9, adult; Z71.3 Dietary counseling and surveillance
CPT/HCPCS: 97803; 99211

== ENCOUNTER → 2018-01-17 | Outpatient (CLI) | payer BC ==
[2018-01-17 15:31] VITALS: BP 128/70; PULSE 101; RESP 16; TEMP 98.4; BMI 37.7
--- NOTE | 2018-01-17 15:57 | P.BASOAP ---
Subjective Progress Note Date: 01/17/18 Principal diagnosis: Morbid obesity Patient doing well today. Denies pain. No nausea or vomiting. Tolerating 64 ounces of liquids per day. Actually is been taking an approximately 90 g of protein per day. Denies heartburn. Heart rate was 101 today. No fevers. She is having some issues with heavy menstrual cycle and also some degree of insomnia. Both of these issues she has struggled with in the past. Objective - Vital Signs Vital signs: Vital Signs Temp 98.4 F 01/17/18 15:29 Pulse 101 H 01/17/18 15:29 Resp 16 01/17/18 15:29 BP 128/70 01/17/18 15:29 Pulse Ox Intake & Output 01/16/18 01/17/18 01/17/18 18:59 06:59 18:59 Weight 101.151 kg - Exam Abdomen: Soft, nontender, nondistended, incisions clean and dry Assessment/Plan (1) Morbid obesity Narrative/Plan: Continue dietary and exercise regimen. Check one month's labs. Continue antiacids. Follow-up 1 month. Plan: Date: 01/17/18 Initial Weight: 116.21 kg Initial BMI: 43.2 Current Weight: 101.151 kg Current BMI: 37.7 Type of Surgery: Total Volume in Band: Previous Volume: Volume Removed: Volume Added: Band Size:
[2018-01-17 16:33] LABS: HCT 42.9 % (34.0-46.0); HGB 13.9 gm/dL (11.4-16.0); MCH 26.6 pg (25.0-35.0); MCHC 32.4 g/dL (31.0-37.0); MCV 82.1 fL (80.0-100.0); Mean Platelet Volume 6.6; Platelet Count 298 k/uL (150-450); RBC 5.23 m/uL (3.80-5.40); RDW 13.9 % (11.5-15.5); WBC 11.4 k/uL (3.8-10.6)
[2018-01-17 16:51] LABS: ALT 65 U/L (9-52); AST 36 U/L (14-36); Albumin 4.4 g/dL (3.5-5.0); Alkaline Phosphatase 92 U/L (38-126); Anion Gap 15 mmol/L; Blood Urea Nitrogen 16 mg/dL (7-17); Calcium 9.7 mg/dL (8.4-10.2); Carbon Dioxide 24 mmol/L (22-30); Chloride 103 mmol/L (98-107); Glucose 77 mg/dL (74-99); Potassium 4.2 mmol/L (3.5-5.1); Sodium 142 mmol/L (137-145); Total Bilirubin 0.5 mg/dL (0.2-1.3); Total Protein 7.3 g/dL (6.3-8.2)
[2018-01-18 00:55] LABS: Vitamin D 25 Hydroxy 28.1 ng/mL (30.0-100.0)
== END | disposition home or self-care (01) ==
LOC: BARWHC3 15:14
PROVIDERS: ATTEND Surgery
DX: E66.01 Morbid (severe) obesity due to excess calories (principal); K90.89 Other intestinal malabsorption; E55.9 Vitamin D deficiency, unspecified; Z68.37 Body mass index [BMI] 37.0-37.9, adult; Z71.3 Dietary counseling and surveillance
CPT/HCPCS: 80053; 82306; 82607; 83540; 84425; 85027; 97803; 99211

== ENCOUNTER 2018-01-20 21:06 | Emergency (ER) | payer BC ==
[2018-01-20] MEDS ORDERED: RX INFO: IV CONTRAST WAS GIVEN 1 EACH MISC MISCELLANE PRN (22:53)
[2018-01-20] MEDS ORDERED: IOPAMIDOL-300 CONTRAST 30 ML VIAL (ORAL USE) PO PRN (22:53)
[2018-01-20 23:05] LABS: Basophils % (A) 0 %; Eosinophils # (A) 0.1 k/uL (0-0.7); Eosinophils % (A) 1 %; HCT 42.5 % (34.0-46.0); HGB 13.6 gm/dL (11.4-16.0); Lymphocytes # (A) 3.4 k/uL (1.0-4.8); Lymphocytes % (A) 34 %; MCH 26.2 pg (25.0-35.0); MCHC 31.9 g/dL (31.0-37.0); Mean Platelet Volume 7.3; Monocytes # (A) 0.6 k/uL (0-1.0); Monocytes % (A) 6 %; Neutrophils # (A) 5.7 k/uL (1.3-7.7); Neutrophils % (A) 57 %; Platelet Count 282 k/uL (150-450); RBC 5.18 m/uL (3.80-5.40); RDW 14.1 % (11.5-15.5); WBC 9.9 k/uL (3.8-10.6)
[2018-01-20 23:10] LABS: Appearance,Urine Clear (Clear); Bacteria,Urine Rare /hpf; Bilirubin,Urine Negative (Negative); Blood,Urine Moderate (Negative); Color,Urine Yellow; Glucose,Urine (UA) Negative (Negative); Ketones,Urine Negative (Negative); Leukocyte Esterase,Urine Large (Negative); Mucus,Urine Rare /hpf; Nitrite,Urine Negative (Negative); Protein,Urine Negative (Negative); RBC,Urine 10 /hpf (0-5); Specific Gravity,Urine 1.015 (1.001-1.035); Squamous Epithelial Cell,Urine 3 /hpf (0-4); Urobilinogen,Urine <2.0 mg/dL (<2.0); WBC,Urine 35 /hpf (0-5)
[2018-01-20 23:13] LABS: ALT 60 U/L (9-52); AST 24 U/L (14-36); Albumin 4.4 g/dL (3.5-5.0); Alkaline Phosphatase 92 U/L (38-126); Amylase 48 U/L (30-110); Anion Gap 13 mmol/L; Blood Urea Nitrogen 18 mg/dL (7-17); Carbon Dioxide 26 mmol/L (22-30); Chloride 102 mmol/L (98-107); Glucose 82 mg/dL (74-99); Lipase 118 U/L (23-300); Sodium 141 mmol/L (137-145); Total Bilirubin 0.4 mg/dL (0.2-1.3); Total Protein 7.2 g/dL (6.3-8.2)
[2018-01-20] MEDS ORDERED: diphenhydrAMINE 50 MG/ML 1 ML VIAL IVP STA (23:33)
[2018-01-20] MEDS ORDERED: FAMOTIDINE 20 MG/2 ML VIAL IV STA (23:33)
[2018-01-20] MEDS ORDERED: methylPREDNISolone SOD SUCCI 125 MG/2 ML VIAL IV STA (23:33)
--- NOTE | 2018-01-20 23:41 | ED ---
Abdominal Pain HPI - General Chief Complaint: Abdominal Pain Stated Complaint: Abd pain Time Seen by Provider: 01/20/18 22:25 Source: patient Mode of arrival: ambulatory Limitations: no limitations - History of Present Illness Initial Comments: 37-year-old female patient presented to the emergency department today for evaluation of right-sided abdominal pain. Patient describes the pain is intense burning. Patient states that around 4:30 this morning her large dog jumped on her abdomen. Patient states that she did have gastric sleeve procedure with Dr. Gomes less than one month ago. Patient states that she has been eating and drinking throughout the day without difficulty. States that the pain has been gradually worsening. She is currently rating her pain at a 6 out of 10 on the pain scale. States that she does feel nauseated but has not vomited. She denies any known fevers or chills. Denies any constipation or diarrhea. Denies any hematuria, dysuria, urinary frequency, urinary urgency. Denies any chance of . - Related Data Home Medications Medication Instructions Recorded Confirmed Citalopram Hydrobromide [CeleXA] 20 mg PO HS 11/29/17 01/20/18 Fexofenadine HCl [Anel Allergy] 180 mg PO HS 11/29/17 01/20/18 Norgestimate-Ethinyl Estradiol 1 tab PO HS 11/29/17 01/20/18 [Sprintec 28 Day Tablet] Simvastatin [Zocor] 10 mg PO HS 11/29/17 01/20/18 Spironolactone [Aldactone] 25 mg PO HS 11/29/17 01/20/18 lamoTRIgine [LaMICtal Odt] 100 mg PO HS 11/29/17 01/20/18 Ondansetron [Zofran] 4 mg PO TID PRN 01/03/18 01/20/18 Omeprazole [PriLOSEC] 20 mg PO DAILY 01/20/18 01/20/18 Previous Rx's Medication Instructions Recorded Cephalexin [Keflex] 500 mg PO Q8H #15 capsule 01/21/18 Allergies Allergy/AdvReac Type Severity Reaction Status Date / Time adhesive tape AdvReac redness Verified 01/20/18 22:09 Review of Systems ROS Statement: Those systems with pertinent positive or pertinent negative responses have been documented in the HPI. ROS Other: All systems not noted in ROS Statement are negative. Past Medical History Past Medical History: Fibromyalgia Additional Past Medical History / Comment(s): PCOS History of Any Multi-Drug Resistant Organisms: None Reported Past Surgical History: No Surgical Hx Reported, Bariatric Surgery Additional Past Surgical History / Comment(s): EGD sleeve gastrectomy 12-23-17 Past Anesthesia/Blood Transfusion Reactions: No Reported Reaction Additional Past Anesthesia/Blood Transfusion Reaction / Comment(s): PATIENT HAS NEVER HAD ANESTHESIA IN THE PAST Past Psychological History: Depression Smoking Status: Former smoker Past Alcohol Use History: None Reported Past Drug Use History: None Reported - Past Family History Mother Family Medical History: No Reported History General Exam Limitations: no limitations General appearance: alert, in no apparent distress, other (Social well-developed , well-nourished adult female patient in no acute distress. Vital signs upon presentation are temperature 98.7F, pulse 90, respirations 18, blood pressure 135/70, pulse ox 97% on room air.) Eye exam: Present: normal appearance, PERRL, EOMI. Absent: scleral icterus, conjunctival injection, periorbital swelling ENT exam: Present: normal exam, normal oropharynx, mucous membranes moist Respiratory exam: Present: normal lung sounds bilaterally. Absent: respiratory distress, wheezes, rales, rhonchi, stridor Cardiovascular Exam: Present: regular rate, normal rhythm, normal heart sounds. Absent: systolic murmur, diastolic murmur, rubs, gallop, clicks GI/Abdominal exam: Present: soft, tenderness (Right-sided abdominal tenderness, both right upper and right lower quadrants.), normal bowel sounds. Absent: distended, guarding, rebound, rigid, mass Neurological exam: Present: alert, oriented X3, CN II-XII intact Psychiatric exam: Present: normal affect, normal mood Skin exam: Present: warm, dry, intact, normal color. Absent: rash Course Vital Signs 01/20/18 01/20/18 01/21/18 21:23 23:51 00:31 Temperature 98.7 F 98.5 F Pulse Rate 90 64 62 Respiratory 18 17 15 Rate Blood Pressure 135/70 116/59 102/57 O2 Sat by Pulse 97 99 95 Oximetry Medical Decision Making - Medical Decision Making 37-year-old female patient presented to the emergency department today for evaluation of right-sided burning abdominal pain after her dog jumped on her. Patient did have gastric sleeve approximately one 1 month ago. Right-sided abdomen was tender. Labs reviewed and are unremarkable. CT of the abdomen and pelvis showed no acute abnormalities. Patient did tolerate oral intake throughout the day today. She does have evidence of urinary tract infection on urinalysis. We'll treat her for this. She is instructed to follow-up with Dr. Gomes as soon as possible. Return parameters discussed in detail. She verbalizes understanding and agrees with this plan. - Lab Data Result diagrams: 01/20/18 22:16 01/20/18 22:16 Lab Results 01/20/18 01/20/18 01/20/18 Range/Units 22:16 22:16 22:16 WBC 9.9 (3.8-10.6) k/uL RBC 5.18 (3.80-5.40) m/uL Hgb 13.6 (11.4-16.0) gm/dL Hct 42.5 (34.0-46.0) % MCV 82.0 (80.0-100.0) fL MCH 26.2 (25.0-35.0) pg MCHC 31.9 (31.0-37.0) g/dL RDW 14.1 (11.5-15.5) % Plt Count 282 (150-450) k/uL Neutrophils % 57 % Lymphocytes % 34 % Monocytes % 6 % Eosinophils % 1 % Basophils % 0 % Neutrophils # 5.7 (1.3-7.7) k/uL Lymphocytes # 3.4 (1.0-4.8) k/uL Monocytes # 0.6 (0-1.0) k/uL Eosinophils # 0.1 (0-0.7) k/uL Basophils # 0.0 (0-0.2) k/uL Sodium 141 (137-145) mmol/L Potassium 4.0 (3.5-5.1) mmol/L Chloride 102 (98-107) mmol/L Carbon Dioxide 26 (22-30) mmol/L Anion Gap 13 mmol/L BUN 18 H (7-17) mg/dL Creatinine 0.63 (0.52-1.04) mg/dL Est GFR (CKD-EPI)AfAm >90 (>60 ml/min/1.73 sqM) Est GFR (CKD-EPI)NonAf >90 (>60 ml/min/1.73 sqM) Glucose 82 (74-99) mg/dL Calcium 10.0 (8.4-10.2) mg/dL Total Bilirubin 0.4 (0.2-1.3) mg/dL AST 24 (14-36) U/L ALT 60 H (9-52) U/L Alkaline Phosphatase 92 (38-126) U/L Total Protein 7.2 (6.3-8.2) g/dL Albumin 4.4 (3.5-5.0) g/dL Amylase 48 (30-110) U/L Lipase 118 (23-300) U/L Urine Color Yellow Urine Appearance Clear (Clear) Urine pH 6.0 (5.0-8.0) Ur Specific [place] 1.015 (1.001-1.035) Urine Protein Negative (Negative) Urine Glucose (UA) Negative (Negative) Urine Ketones Negative (Negative) Urine Blood Moderate H (Negative) Urine Nitrite Negative (Negative) Urine Bilirubin Negative (Negative) Urine Urobilinogen <2.0 (<2.0) mg/dL Ur Leukocyte Esterase Large H (Negative) Urine RBC 10 H (0-5) /hpf Urine WBC 35 H (0-5) /hpf Ur Squamous Epith Cells 3 (0-4) /hpf Urine Bacteria Rare H (None) /hpf Urine Mucus Rare H (None) /hpf Urine HCG, Qual (Not Detectd) 01/20/18 Range/Units 22:16 WBC (3.8-10.6) k/uL RBC (3.80-5.40) m/uL Hgb (11.4-16.0) gm/dL Hct (34.0-46.0) % MCV (80.0-100.0) fL MCH (25.0-35.0) pg MCHC (31.0-37.0) g/dL RDW (11.5-15.5) % Plt Count (150-450) k/uL Neutrophils % % Lymphocytes % % Monocytes % % Eosinophils % % Basophils % % Neutrophils # (1.3-7.7) k/uL Lymphocytes # (1.0-4.8) k/uL Monocytes # (0-1.0) k/uL Eosinophils # (0-0.7) k/uL Basophils # (0-0.2) k/uL Sodium (137-145) mmol/L Potassium (3.5-5.1) mmol/L Chloride (98-107) mmol/L Carbon Dioxide (22-30) mmol/L Anion Gap mmol/L BUN (7-17) mg/dL Creatinine (0.52-1.04) mg/dL Est GFR (CKD-EPI)AfAm (>60 ml/min/1.73 sqM) Est GFR (CKD-EPI)NonAf (>60 ml/min/1.73 sqM) Glucose (74-99) mg/dL Calcium (8.4-10.2) mg/dL Total Bilirubin (0.2-1.3) mg/dL AST (14-36) U/L ALT (9-52) U/L Alkaline Phosphatase (38-126) U/L Total Protein (6.3-8.2) g/dL Albumin (3.5-5.0) g/dL Amylase (30-110) U/L Lipase (23-300) U/L Urine Color Urine Appearance (Clear) Urine pH (5.0-8.0) Ur Specific [place] (1.001-1.035) Urine Protein (Negative) Urine Glucose (UA) (Negative) Urine Ketones (Negative) Urine Blood (Negative) Urine Nitrite (Negative) Urine Bilirubin (Negative) Urine Urobilinogen (<2.0) mg/dL Ur Leukocyte Esterase (Negative) Urine RBC (0-5) /hpf Urine WBC (0-5) /hpf Ur Squamous Epith Cells (0-4) /hpf Urine Bacteria (None) /hpf Urine Mucus (None) /hpf Urine HCG, Qual Not Detected (Not Detectd) - Radiology Data Radiology results: report reviewed, image reviewed CT of the abdomen and pelvis with contrast was obtained. Report was reviewed in its entirety. Impression by Dr. Beckford shows normal appendix. Calcification in the uterus near the endometrium could relate to calcified submucosal fibroid. Disposition Clinical Impression: Abdominal pain, Urinary tract infection, Allergic reaction to contrast dye Disposition: HOME SELF-CARE Condition: Good Instructions: Urinary Tract Infection in Women (ED), Abdominal Pain (ED) Additional Instructions: Increase fluids. Follow-up with your abdominal surgeon as soon as possible. Complete antibiotic prescription and full. Return here immediately for any new , worsening, or concerning symptoms. Prescriptions: Cephalexin [Keflex] 500 mg PO Q8H #15 capsule Is patient prescribed a controlled substance at d/c from ED?: No Referrals: Harrison Coreas III, MD [Primary Care Provider] - 1-2 days Rehan Gomes MD [Medical Doctor] - 1-2 days Time of Disposition: 00:29
--- NOTE | 2018-01-20 23:52 | CT ---
EXAMINATION TYPE: CT abdomen pelvis w con DATE OF EXAM: 01/20/2018 COMPARISON: NONE HISTORY: No prior, pt had gastric sleeve 12/23/17, pt's dog jumped on her today and now she is having right sided abd pain CT DLP: 991.30 mGycm Automated exposure control for dose reduction was used. TECHNIQUE: Helical acquisition of images was performed from the lung bases through the pelvis. CONTRAST: Performed with Oral Contrast and with IV Contrast, patient injected with 100 mL of Isovue 300. FINDINGS: The lung bases are clear. There is no pleural effusion. Liver spleen pancreas gallbladder appear normal. Bile ducts are not dilated. There is no adrenal mass. Kidneys show satisfactory contrast opacification. There is no hydronephrosi s. There is no retroperitoneal adenopathy. There is no ascites. Bladder distends smoothly. There is n o evidence of a pelvic mass. There is uterine 1 cm calcification could relate to calcified fibroid. T he appendix appears normal. I see no intestinal wall thickening. There are no dilated loops. IMPRESSION: NORMAL APPENDIX. CALCIFICATION IN THE UTERUS NEAR THE ENDOMETRIUM COULD RELATE TO CALCIFIED SUB-MUCOS AL FIBROID.
[2018-01-21] MEDS ORDERED: CEPHALEXIN 500MG STARTER PACK 4 CAP BTL PO STA (00:29)
[2018-01-21 00:32] VITALS: BP 102/57; PULSE 62; RESP 15; TEMP 98.5
== END 2018-01-21 00:45 | disposition home or self-care (01) ==
LOC: EC 21:06
DX: N39.0 Urinary tract infection, site not specified (principal); R10.11 Right upper quadrant pain; R10.31 Right lower quadrant pain; T50.8X5A Adverse effect of diagnostic agents, initial encounter; F32.9 Major depressive disorder, single episode, unspecified; Z87.891 Personal history of nicotine dependence; Z79.3 Long term (current) use of hormonal contraceptives; Z79.899 Other long term (current) drug therapy; Z91.048 Other nonmedicinal substance allergy status; Z98.890 Other specified postprocedural states
CPT/HCPCS: 36415; 80053; 82150; 83690; 85025; 81001; 81025; 87086; 74177; 99284; 96374; 96375 ×2; J1200; J2930; Q9967

== ENCOUNTER → 2018-03-07 | Outpatient (CLI) | payer BC ==
[2018-03-07 14:32] VITALS: BP 116/69; PULSE 96; TEMP 98; BMI 26.3
--- NOTE | 2018-03-07 16:36 | P.BASOAP ---
Subjective Progress Note Date: 03/07/18 Principal diagnosis: Morbid obesity Patient doing well today. Surgery initially on December 23. Excellent protein intake. No nausea or vomiting. No heartburn symptoms. Lost approximately 18 pounds since last visit. She actually was concerned she had lost too much. Objective - Vital Signs Vital signs: Vital Signs Temp 98.0 F 03/07/18 14:30 Pulse 96 03/07/18 14:30 Resp BP 116/69 03/07/18 14:30 Pulse Ox Intake & Output 03/06/18 03/07/18 03/07/18 18:59 06:59 18:59 Weight 92.986 kg - Exam Abdomen: Soft, nontender, nondistended Assessment/Plan (1) Morbid obesity Narrative/Plan: Continue antiacid therapy. Continue dietary and exercise regimen. Check three- month labs next visit. Plan: Date: 03/07/18 Initial Weight: 116.21 kg Initial BMI: 32.8 Current Weight: 92.986 kg Current BMI: 26.3 Type of Surgery: Total Volume in Band: Previous Volume: Volume Removed: Volume Added: Band Size:
== END | disposition home or self-care (01) ==
LOC: BARWHC3 14:04
PROVIDERS: ATTEND Surgery
DX: E66.01 Morbid (severe) obesity due to excess calories (principal); Z68.26 Body mass index [BMI] 26.0-26.9, adult; Z71.3 Dietary counseling and surveillance
CPT/HCPCS: 97803; 99211

== ENCOUNTER → 2018-05-04 | Outpatient (CLI) | payer BC ==
[2018-05-04 08:56] LABS: HCT 42.5 % (34.0-46.0); HGB 13.4 gm/dL (11.4-16.0); MCH 26.3 pg (25.0-35.0); MCHC 31.6 g/dL (31.0-37.0); MCV 83.2 fL (80.0-100.0); Mean Platelet Volume 6.8; Platelet Count 329 k/uL (150-450); RBC 5.11 m/uL (3.80-5.40); RDW 14.7 % (11.5-15.5)
[2018-05-04 09:08] LABS: Partial Thromboplastin Time 23.5 sec (22.0-30.0); Prothrombin Time 10.1 sec (9.0-12.0)
[2018-05-04 09:18] LABS: ALT 34 U/L (9-52); AST 20 U/L (14-36); Alkaline Phosphatase 102 U/L (38-126); Anion Gap 8 mmol/L; Blood Urea Nitrogen 15 mg/dL (7-17); Calcium 9.4 mg/dL (8.4-10.2); Carbon Dioxide 29 mmol/L (22-30); Chloride 104 mmol/L (98-107); Cholesterol 197 mg/dL (<200); Glucose 101 mg/dL (74-99); HDL Cholesterol 54 mg/dL (40-60); LDL Cholesterol,Calculated 103 mg/dL (0-99); Phosphorus 3.8 mg/dL (2.5-4.5); Potassium 4.3 mmol/L (3.5-5.1); Sodium 141 mmol/L (137-145); Total Bilirubin 0.5 mg/dL (0.2-1.3); Triglycerides 198 mg/dL (<150)
[2018-05-04 17:42] LABS: Iron Saturation 20.56 (12.00-45.00)
[2018-05-04 17:51] LABS: Folate, Serum 9.2 ng/mL; Vitamin D 25 Hydroxy 25.1 ng/mL (30.0-100.0)
[2018-05-04 18:07] LABS: Parathyroid Hormone Intact 30.4 pg/mL (14.0-72.0)
[2018-05-04 20:05] LABS: Hemoglobin A1C 5.3 % (4.0-6.0)
[2018-05-05 12:54] LABS: Zinc, Serum 90 ug/dL (60-130)
[2018-05-06 17:14] LABS: Selenium 120 mcg/L (63-160)
[2018-05-08 07:17] LABS: Vitamin B1 58 ug/L (38-122)
[2018-05-08 07:22] LABS: Vitamin A 58 ug/dL (38-106)
== END | disposition home or self-care (01) ==
LOC: LABWHC1 08:35
PROVIDERS: ATTEND Surgery Plastic and Reconstructive Surgery
DX: Z48.815 Encounter for surgical aftercare following surgery on the digestive system (principal); E66.01 Morbid (severe) obesity due to excess calories; E21.1 Secondary hyperparathyroidism, not elsewhere classified; D50.9 Iron deficiency anemia, unspecified; E89.1 Postprocedural hypoinsulinemia; K90.9 Intestinal malabsorption, unspecified; E55.9 Vitamin D deficiency, unspecified; K74.1 Hepatic sclerosis; N19 Unspecified kidney failure; K50.90 Crohn's disease, unspecified, without complications; Z98.84 Bariatric surgery status
CPT/HCPCS: 36415; 80053; 80061; 82306; 82525; 82607; 82728; 82746; 83036; 83540; 83550; 83735; 83970; 84100; 84134; 84255; 84425; 84443; 84590; 84630; 85027; 85610; 85730

== ENCOUNTER → 2018-05-04 | Outpatient (CLI) | payer BC ==
[~2018-05-04] MED LIST changes: -DEXAMETHASONE SOD PHOSPHATE 10 MG/ML 1 ML VIAL IV ONE; -ENOXAPARIN 40 MG/0.4 ML SYRINGE SQ ONE; -MIDAZOLAM 2 MG/2 ML VIAL IV PRN; -ONDANSETRON 4 MG/2 ML VIAL IVP ONE; -SCOPOLAMINE 1.5MG/72HR PATCH TRANSDERM ONE; +SODIUM CHLORIDE 0.9% 1,000 ML with MVI, ADULT NO.4 WITH VIT K 10 ML, THIAMINE 100 MG, F... IV NR; +SODIUM CHLORIDE 0.9% 500 ML in EMPTY BAG 1 BAG IV PRN; -ceFAZolin IN SWFI 2 GM/20 ML SYRINGE IVP ONE
[2018-05-04 09:58] VITALS: BP 107/62; PULSE 70; RESP 18; TEMP 98
== END | disposition home or self-care (01) ==
LOC: PROCWHC3 09:31
PROVIDERS: ATTEND Surgery Plastic and Reconstructive Surgery
DX: E86.0 Dehydration (principal); E56.9 Vitamin deficiency, unspecified; Z91.041 Radiographic dye allergy status; Z91.048 Other nonmedicinal substance allergy status
CPT/HCPCS: 96360; J3411

== ENCOUNTER → 2018-05-09 | Outpatient (CLI) | payer BC ==
[2018-05-09 14:29] VITALS: BP 123/80; PULSE 89; RESP 16; TEMP 98.8; BMI 33.7
--- NOTE | 2018-05-09 23:11 | P.BASOAP ---
Subjective Progress Note Date: 05/09/18 Principal diagnosis: Morbid obesity Patient returns for evaluation. Last week was feeling dizzy and lightheaded and she came into the hospital for IV hydration. Patient takes spironolactone for PCL less symptoms. She said her blood pressure at times has been low. She also has had a lot of stress lately. She has been drinking and eating less than she usually had been. 5 pound weight loss. No pain. Mild reflux. Objective - Vital Signs Vital signs: Vital Signs Temp 98.8 F 05/09/18 14:21 Pulse 89 05/09/18 14:21 Resp 16 05/09/18 14:21 BP 123/80 05/09/18 14:21 Pulse Ox Intake & Output 05/09/18 05/09/18 05/10/18 06:59 18:59 06:59 Weight 90.718 kg - Exam Abdomen: Soft, nontender, nondistended Assessment/Plan (1) Morbid obesity Narrative/Plan: Advised patient consider stopping spironolactone at this time. Continue increasing protein and fluid intake. Follow-up evaluation 1-2 months. Plan: Date: 05/09/18 Initial Weight: 116.21 kg Initial BMI: 43.2 Current Weight: 90.718 kg Current BMI: 33.7 Type of Surgery: Total Volume in Band: Previous Volume: Volume Removed: Volume Added: Band Size:
== END | disposition home or self-care (01) ==
LOC: BARWHC3 13:44
PROVIDERS: ATTEND Surgery
DX: E66.01 Morbid (severe) obesity due to excess calories (principal); Z68.33 Body mass index [BMI] 33.0-33.9, adult
CPT/HCPCS: 97803; 99211

== ENCOUNTER → 2019-01-23 | Outpatient (CLI) | payer SELFPAY ==
[2019-01-23 13:44] VITALS: BP 119/74; PULSE 95; RESP 16; TEMP 98.5; BMI 31.1
--- NOTE | 2019-01-23 14:50 | P.BASOAP ---
Subjective Progress Note Date: 01/23/19 Principal diagnosis: Morbid obesity Patient returns for follow-up. Overall the patient's follow-up is been poor. She was last seen in April of last year. At that time she was feeling lightheaded and had some relative hypotension. She held her spironolactone for a while but then resumed taking it. Doing better as far as her blood pressure goes currently. She has had a weight loss plateau for the last 2 months. Weight went from 200-184 since her last visit. Denies nausea or vomiting. Mild reflux if she misses more than 2 doses of antacids. Patient has had more sugar lately. Slightly decreased activities. Patient is quite depressed with multiple family members being ill currently. She has no insurance to follow-up with her PCP or her psychiatrist to discuss these issues currently. Objective - Vital Signs Vital signs: Vital Signs Temp 98.5 F 01/23/19 13:42 Pulse 95 01/23/19 13:42 Resp 16 01/23/19 13:42 BP 119/74 01/23/19 13:42 Pulse Ox Intake & Output 01/22/19 01/23/19 01/23/19 18:59 06:59 18:59 Weight 83.489 kg - Exam Abdomen: Soft, nontender, nondistended Assessment/Plan (1) Morbid obesity Narrative/Plan: Continue dietary and exercise regimen. Decrease carbohydrate use. We'll try to obtain insurance and would like the patient seen by psychiatry to discuss her depression issues further. We'll check one year labs at this time. Follow-up 3 months. Plan: Date: 01/23/19 Initial Weight: 116.21 kg Initial BMI: 43.2 Current Weight: 83.489 kg Current BMI: 31.1 Type of Surgery: Total Volume in Band: Previous Volume: Volume Removed: Volume Added: Band Size:
== END | disposition home or self-care (01) ==
LOC: BARWHC3 13:20
PROVIDERS: ATTEND Surgery
DX: E66.01 Morbid (severe) obesity due to excess calories (principal); K21.9 Gastro-esophageal reflux disease without esophagitis; F32.9 Major depressive disorder, single episode, unspecified; Z68.31 Body mass index [BMI] 31.0-31.9, adult; Z79.899 Other long term (current) drug therapy
CPT/HCPCS: 97803; 99211

== ENCOUNTER → 2019-02-13 | Outpatient (CLI) | payer SELFPAY ==
[2019-02-13 16:54] LABS: HCT 38.3 % (34.0-46.0); MCH 24.8 pg (25.0-35.0); MCHC 31.3 g/dL (31.0-37.0); MCV 79.2 fL (80.0-100.0); Mean Platelet Volume 6.2; Platelet Count 311 k/uL (150-450); RBC 4.83 m/uL (3.80-5.40); RDW 14.1 % (11.5-15.5); WBC 8.3 k/uL (3.8-10.6)
[2019-02-14 00:49] LABS: Albumin 4.5 g/dL (3.80-4.90); Albumin/Globulin Ratio 1.96 (1.60-3.17); Calcium 9.1 mg/dL (8.7-10.3); Globulin 2.3 g/dL (1.6-3.3); Potassium 4.6 mmol/L (3.5-5.5); Total Bilirubin 0.2 mg/dL (0.2-1.2); Total Protein 6.8 g/dL (6.2-8.2)
[2019-02-14 00:57] LABS: Vitamin D 25 Hydroxy 19.5 ng/mL (30.0-100.0)
[2019-02-14 01:40] LABS: Folate, Serum 11.2 ng/mL
== END ==
LOC: LABWHC1 16:07
PROVIDERS: ATTEND Surgery
DX: Z48.815 Encounter for surgical aftercare following surgery on the digestive system (principal); E66.01 Morbid (severe) obesity due to excess calories; D50.8 Other iron deficiency anemias; E55.9 Vitamin D deficiency, unspecified; Z98.84 Bariatric surgery status
CPT/HCPCS: 36415; 80053; 82306; 82746; 83540; 84425; 85027

== ENCOUNTER → 2019-04-24 | Outpatient (CLI) | payer SELFPAY ==
--- NOTE | 2019-04-24 13:28 | P.BASOAP ---
Subjective Progress Note Date: 04/24/19 Principal diagnosis: Morbid obesity Patient returns today for reevaluation. Last seen in January. Her depression is somewhat improved however her grandmother just . She states that she stopped paying attention to her diet for a short while which resulted in approximately 9 pound weight gain. Denies nausea or vomiting. Reflux symptoms absent as long as she is taking her antiacids. She is still taking 2 protein shakes per day. Labs from February revealed a low vitamin D of 19 and a low iron of 21. Both vitamin D and iron supplements were started. Denies rectal bleeding or melena. No hematemesis. Objective - Vital Signs Vital signs: Vital Signs Temp 98.1 F 04/24/19 12:59 Pulse 82 04/24/19 12:59 Resp 16 04/24/19 12:59 BP 115/68 04/24/19 12:59 Pulse Ox Intake & Output 04/23/19 04/24/19 04/24/19 18:59 06:59 18:59 Weight 88.451 kg - Exam Abdomen: Soft, nontender, nondistended Assessment/Plan (1) Morbid obesity Narrative/Plan: Patient doing well at this time. Continue dietary and exercise regimen. Continue vitamin D and iron supplementation. Renewal for the patient's vitamin D prescribed today. 50,000 units once per week. We'll plan repeat labs in 3 months. Follow-up 3 months. Plan: Date: 04/24/19 Initial Weight: 116.21 kg Initial BMI: 43.2 Current Weight: 88.451 kg Current BMI: 32.9 Type of Surgery: Total Volume in Band: Previous Volume: Volume Removed: Volume Added: Band Size:
== END ==
CPT/HCPCS: 99211

== ENCOUNTER 2022-08-25 09:09 | Emergency (ER) | payer OTHER ==
--- NOTE | 2022-08-25 10:07 | XR ---
EXAMINATION TYPE: XR chest 2V DATE OF EXAM: 08/25/2022 COMPARISON: NONE HISTORY: Cough. TECHNIQUE: Frontal and lateral views of the chest are obtained. FINDINGS: There is patchy increased opacity left lower lung likely localizes to the left lower lobe on lateral view. Right lung is clear. No pleural effusion or pneumothorax seen bilaterally. The card iac silhouette size is within normal limits. The osseous structures are intact. Surgical clips ante rior epigastric region are noted. IMPRESSION: Patchy left lower lung acute infiltrate.
[2022-08-25] MEDS ORDERED: DOXYCYCLINE 100 MG CAP PO STA (10:39)
--- NOTE | 2022-08-25 10:40 | ED ---
General Adult HPI - General Chief complaint: Upper Respiratory Infection Stated complaint: cough, SOB Time Seen by Provider: 08/25/22 10:25 Source: patient, RN notes reviewed, old records reviewed Mode of arrival: ambulatory Limitations: no limitations - History of Present Illness Initial comments: Patient is a 41-year-old female who presents emergency Department complaining of a cough, congestion for the last week. No real improvement in symptoms. Denies any fevers. Denies nausea or vomiting. Denies diarrhea. His no known sick contacts. Denies sore throat. Presents over concern for congestion and possibly worsening infectious process. Denies chest pain, shortness of breath, abdominal pain, nausea, vomiting. - Related Data Home Medications Medication Instructions Recorded Confirmed Citalopram Hydrobromide [CeleXA] 20 mg PO HS 11/29/17 04/24/19 lamoTRIgine [LaMICtal ODT] 100 mg PO HS 11/29/17 04/24/19 norgestimate-ethinyl estradioL 1 tab PO HS 11/29/17 04/24/19 [Sprintec 28 Day Tablet] Omeprazole [PriLOSEC] 20 mg PO DAILY 01/20/18 04/24/19 Ergocalciferol [Vitamin D2 50,000 unit PO WEEKLY 04/25/19 04/25/19 (DRISDOL)] Previous Rx's Medication Instructions Recorded Doxycycline Hyclate 100 mg PO BID 7 Days #14 capsule 08/25/22 Allergies Allergy/AdvReac Type Severity Reaction Status Date / Time Iodinated Contrast Media Allergy Dyspnea Verified 08/25/22 09:12 [Iodinated Contrast- Oral and IV Dye] adhesive tape AdvReac redness Verified 08/25/22 09:12 Review of Systems ROS Statement: Those systems with pertinent positive or pertinent negative responses have been documented in the HPI. Review of Systems: CONST: Denies fever EYES: Denies blurry vision ENT: Endorses nasal congestion C/V: Denies Chest pain RESP: Denies shortness of breath GI: Denies abdominal pain : Denies dysuria SKIN: Denies rash. MSK: Denies joint pain. NEURO: Denies headache ROS Other: All systems not noted in ROS Statement are negative. Past Medical History Past Medical History: Fibromyalgia Additional Past Medical History / Comment(s): PCOS History of Any Multi-Drug Resistant Organisms: None Reported Past Surgical History: No Surgical Hx Reported, Bariatric Surgery Additional Past Surgical History / Comment(s): EGD sleeve gastrectomy 12-23-17 Past Anesthesia/Blood Transfusion Reactions: No Reported Reaction Additional Past Anesthesia/Blood Transfusion Reaction / Comment(s): PATIENT HAS NEVER HAD ANESTHESIA IN THE PAST Past Psychological History: Depression Smoking Status: Former smoker Past Alcohol Use History: None Reported Past Drug Use History: None Reported - Past Family History Mother Family Medical History: No Reported History General Exam - General Exam Comments Initial Comments: General: Appears in no acute distress. HEAD: Normal with no signs of head trauma. EYES: EOMI ENT: HEENT grossly intact RESPIRATORY: Clear breath sounds bilaterally. No wheezes, rales, or rhonchi. No hypoxia, no increased work of breathing. C/V: Regular rate and rhythm. Peripheral pulses 2+ and intact throughout. ABD: Nondistended EXT: No obvious deformity SKIN: No rashes or lesions observed on exposed skin. NEURO: Alert and oriented 4. Limitations: no limitations Course Vital Signs 08/25/22 08/25/22 09:10 10:51 Temperature 98.6 F 99.2 F Pulse Rate 105 H 100 Respiratory 20 16 Rate Blood Pressure 130/68 128/74 O2 Sat by Pulse 99 97 Oximetry Medical Decision Making - Medical Decision Making Based on the patient's presentation and physical exam, I'm concerned for upper respiratory infection for the patient. While the patient was in triage, we did obtain a viral swabs as well as chest x-ray. Covid influenza negative. Chest x-ray as interpreted by myself reveals a patchy left lower lung infiltrate. Vital signs are within acceptable limits. I discussed the findings with the patient. She was in the TP room. She'll be started on antibiotics for pneumonia. Vital signs within acceptable limits. Strict return precautions were discussed. She was in agreement this plan. I will provide the patient with a prescription for doxycycline. I instructed the patient to follow up with their PCP in the next 1-3 days. I explained that the patient should return to the emergency department if they experience any worsening symptoms. Strict return precautions were discussed with the patient. The patient expressed understanding of these instructions. I answered all questions that the patient had. The patient was discharged home in good condition with their prescriptions and follow up information. - Lab Data Lab Results 08/25/22 08/25/22 Range/Units 09:16 09:16 Coronavirus (PCR) Not Detected (Not Detectd) Influenza Type A RNA Not Detected (Not Detectd) Influenza Type B (PCR) Not Detected (Not Detectd) Disposition Clinical Impression: Pneumonia Disposition: HOME SELF-CARE Condition: Good Instructions (If sedation given, give patient instructions): Community Acquired Pneumonia (ED) Prescriptions: Doxycycline Hyclate 100 mg PO BID 7 Days #14 capsule Is patient prescribed a controlled substance at d/c from ED?: No Referrals: Regla Roque [Primary Care Provider] - 1-2 days Time of Disposition: 10:40
[2022-08-25 10:52] VITALS: BP 128/74; PULSE 100; RESP 16; TEMP 99.2
== END 2022-08-25 11:00 | disposition home or self-care (01) ==
LOC: EC 09:09
DX: J18.9 Pneumonia, unspecified organism (principal); F32.A Depression, unspecified; Z20.822 Contact with and (suspected) exposure to COVID-19; Z87.891 Personal history of nicotine dependence; Z88.8 Allergy status to other drugs, medicaments and biological substances
CPT/HCPCS: 71046; 87502; 87635; 99285

== ENCOUNTER 2023-08-15 12:39 | Observation (INO) | payer OTHER ==
--- NOTE | 2023-08-15 12:58 | ED ---
General Adult HPI - General Stated complaint: Chest Pain Time Seen by Provider: 08/15/23 12:41 Source: patient, EMS, RN notes reviewed, old records reviewed Mode of arrival: EMS Limitations: no limitations - History of Present Illness Initial comments: 42-year-old female presents for evaluation of central chest pain and epigastric pain which began approximately 2 hours prior to arrival. Pain travel into the patient's back. She was given nitroglycerin by paramedics from with minimal improvement. She has no prior history of coronary artery disease. No history of aortic pathology. No associated diaphoresis, no dyspnea, mild nausea without vomiting. No lower extremity pain or swelling. - Related Data Home Medications Medication Instructions Recorded Confirmed Omeprazole [PriLOSEC] 20 mg PO HS 01/20/18 08/15/23 DULoxetine HCL 20 mg PO HS 08/15/23 08/15/23 DULoxetine HCL [Cymbalta] 60 mg PO HS 08/15/23 08/15/23 Ferrous Fumarate 324 Mg (106mg 1 tab PO HS 08/15/23 08/15/23 Iron) Tab Meclizine HCl [Antivert] 25 mg PO Q6H PRN 08/15/23 08/15/23 lamoTRIgine [LaMICtal] 150 mg PO HS 08/15/23 08/15/23 Allergies Allergy/AdvReac Type Severity Reaction Status Date / Time Iodinated Contrast Media Allergy Dyspnea Verified 08/15/23 14:25 [Iodinated Contrast- Oral and IV Dye] adhesive tape AdvReac redness Verified 08/15/23 14:25 Review of Systems ROS Statement: Those systems with pertinent positive or pertinent negative responses have been documented in the HPI. ROS Other: All systems not noted in ROS Statement are negative. Past Medical History Past Medical History: Fibromyalgia Additional Past Medical History / Comment(s): PCOS History of Any Multi-Drug Resistant Organisms: None Reported Past Surgical History: No Surgical Hx Reported, Bariatric Surgery Additional Past Surgical History / Comment(s): EGD sleeve gastrectomy 12-23-17 Past Anesthesia/Blood Transfusion Reactions: No Reported Reaction Additional Past Anesthesia/Blood Transfusion Reaction / Comment(s): PATIENT HAS NEVER HAD ANESTHESIA IN THE PAST Past Psychological History: Anxiety, Depression Smoking Status: Former smoker Past Alcohol Use History: None Reported Past Drug Use History: None Reported - Past Family History Mother Family Medical History: No Reported History General Exam Limitations: no limitations General appearance: alert, anxious Head exam: Present: atraumatic, normocephalic Eye exam: Present: normal appearance, PERRL ENT exam: Present: normal exam Neck exam: Present: normal inspection. Absent: tenderness, meningismus Respiratory exam: Present: normal lung sounds bilaterally. Absent: respiratory distress, wheezes Cardiovascular Exam: Present: regular rate, normal rhythm GI/Abdominal exam: Present: soft, tenderness (Epigastric and right upper quadrant tenderness). Absent: distended, guarding Extremities exam: Present: normal inspection, normal capillary refill. Absent: pedal edema, calf tenderness Neurological exam: Present: alert, oriented X3, CN II-XII intact. Absent: motor sensory deficit Psychiatric exam: Present: normal affect, normal mood Skin exam: Present: warm, dry, intact. Absent: cyanosis, diaphoretic Course Vital Signs 08/15/23 08/15/23 08/15/23 12:40 14:27 15:37 Temperature 98.2 F Pulse Rate 86 81 70 Respiratory 24 20 20 Rate Blood Pressure 128/80 115/61 104/67 O2 Sat by Pulse 100 97 95 Oximetry Medical Decision Making - Medical Decision Making Was pt. sent in by a medical professional or institution (, PA, PRINCIPAL ADMINISTRATIVE CLERK, urgent care, hospital, or assisted...) When possible be specific @ -No Did you speak to anyone other than the patient for history (EMS, parent, family, police, friend...)? What history was obtained from this source @ -History obtained from paramedics. Upon arrival Did you review nursing and triage notes (agree or disagree)? Why? @ -I reviewed and agree with nursing and triage notes Were old charts reviewed (outside hosp., previous admission, EMS record, old EKG, old radiological studies, urgent care reports/EKG's, assisted records)? Report findings @ -No old charts were reviewed Differential Diagnosis (chest pain, altered mental status, abdominal pain women, abdominal pain men, vaginal bleeding, weakness, fever, dyspnea, syncope, headache, dizziness, GI bleed, back pain, seizure, CVA, palpatations, mental health, musculoskeletal)? @ Differential Chest Pain: Stable Angina, Unstable Angina, STEMI, NSTEMI Aortic Dissection, Pneumothorax, Musculoskeletal, Esophageal Spasm GERD, Cholecystitis, Pancreatitis, Zoster, this is not meant to be an all-inclusive list. EKG interpreted by me (3pts min.). @ -[EKG: Sinus rhythm rate of 78, NM interval 120, QRS duration 92, QTC [address] segment changes. X-rays interpreted by me (1pt min.). @ -Chest x-ray unremarkable CT interpreted by me (1pt min.). @ -None done U/S interpreted by me (1pt. min.). @ Ultrasound shows gallstones with positive Steele sign What testing was considered but not performed or refused? (CT, X-rays, U/S, labs)? Why? @ -None What meds were considered but not given or refused? Why? @ -None Did you discuss the management of the patient with other professionals (professionals i.e. , PA, PRINCIPAL ADMINISTRATIVE CLERK, lab, RT, psych nurse, clinical social work aide, neon glass blower, teacher, eeo officer, immigration case manager)? Give summary @ Case discussed with Dr. Padilla Was smoking cessation discussed for >3mins.? @ -No Was critical care preformed (if so, how long)? @ -No Were there social determinants of health that impacted care today? How? (Homelessness, low income, unemployed, alcoholism, drug addiction, transportati on, low edu. Level, literacy, decrease access to med. care, prison, rehab)? @ -No Was there de-escalation of care discussed even if they declined (Discuss DNR or withdrawal of care, Hospice)? DNR status @ -No What co-morbidities impacted this encounter? (DM, HTN, Smoking, COPD, CAD, Cancer, CVA, ARF, Chemo, Hep., AIDS, mental health diagnosis, sleep apnea, morbid obesity)? @ -None Was patient admitted / discharged? Hospital course, mention meds given and route, prescriptions, significant lab abnormalities, going to OR and other pertinent info. @ -[42-year-old female with epigastric pain, lower chest pain, nausea patient tender on exam. Normal CBC, normal CMP, negative d-dimer, negative troponin. Patient's liver enzymes are unremarkable. Chest x-ray is clear. Ultrasound does show positive Steele's with gallstones,. Case discussed with general surgery, will admit Undiagnosed new problem with uncertain prognosis? @ -No Drug Therapy requiring intensive monitoring for toxicity (Heparin, Nitro, Ins ulin, Cardizem)? @ -No Were any procedures done? @ -No Diagnosis/symptom? @ -[Acute cholecystitis Acute, or Chronic, or Acute on Chronic? @ Acute Uncomplicated (without systemic symptoms) or Complicated (systemic symptoms)? @ -default Side effects of treatment? @ -No Exacerbation, Progression, or Severe Exacerbation? @ -No Poses a threat to life or bodily function? How? (Chest pain, [place], OR, pneumonia, PE, COPD, DKA, ARF, appy, cholecystitis, CVA, Diverticulitis, Homicidal, Suicidal, threat to staff... and all critical care pts) @ -[Yes, sepsis - Lab Data Result diagrams: 08/15/23 12:53 08/15/23 12:53 Lab Results 08/15/23 08/15/23 08/15/23 Range/Units 12:53 12:53 12:53 WBC 9.5 (3.8-10.6) k/uL RBC 5.01 (3.80-5.40) m/uL Hgb 11.1 L (11.4-16.0) gm/dL Hct 35.6 (34.0-46.0) % MCV 71.1 L (80.0-100.0) fL MCH 22.1 L (25.0-35.0) pg MCHC 31.1 (31.0-37.0) g/dL RDW 17.3 H (11.5-15.5) % Plt Count 349 (150-450) k/uL MPV 6.7 Neutrophils % 58 % Lymphocytes % 34 % Monocytes % 5 % Eosinophils % 1 % Basophils % 0 % Neutrophils # 5.5 (1.3-7.7) k/uL Lymphocytes # 3.2 (1.0-4.8) k/uL Monocytes # 0.5 (0-1.0) k/uL Eosinophils # 0.1 (0-0.7) k/uL Basophils # 0.0 (0-0.2) k/uL Hypochromasia Moderate Anisocytosis Slight Microcytosis Marked PT 9.8 L (10.0-12.5) sec INR 0.9 (<1.2) APTT 24.1 (22.0-30.0) sec D-Dimer 0.27 (<0.60) mg/L FEU Sodium 139 (137-145) mmol/L Potassium 4.1 (3.5-5.1) mmol/L Chloride 104 (98-107) mmol/L Carbon Dioxide 21 L (22-30) mmol/L Anion Gap 14 mmol/L BUN 13 (7-17) mg/dL Creatinine 0.57 (0.52-1.04) mg/dL Est GFR (CKD-EPI)AfAm >90 (>60 ml/min/1.73 sqM) Est GFR (CKD-EPI)NonAf >90 (>60 ml/min/1.73 sqM) Glucose 95 (74-99) mg/dL Calcium 9.4 (8.4-10.2) mg/dL Magnesium 2.1 (1.6-2.3) mg/dL Total Bilirubin 0.4 (0.2-1.3) mg/dL AST 23 (14-36) U/L ALT 21 (4-34) U/L Alkaline Phosphatase 97 (38-126) U/L Troponin I (0.000-0.034) ng/mL Total Protein 7.6 (6.3-8.2) g/dL Albumin 4.4 (3.5-5.0) g/dL Lipase 84 (23-300) U/L Urine Color Urine Appearance (Clear) Urine pH (5.0-8.0) Ur Specific [place] (1.001-1.035) Urine Protein (Negative) Urine Glucose (UA) (Negative) Urine Ketones (Negative) Urine Blood (Negative) Urine Nitrite (Negative) Urine Bilirubin (Negative) Urine Urobilinogen (<2.0) mg/dL Ur Leukocyte Esterase (Negative) Urine RBC (0-5) /hpf Urine WBC (0-5) /hpf Ur Squamous Epith Cells (0-4) /hpf Urine HCG, Qual (Not Detectd) 08/15/23 08/15/23 08/15/23 Range/Units 12:53 14:19 14:19 WBC (3.8-10.6) k/uL RBC (3.80-5.40) m/uL Hgb (11.4-16.0) gm/dL Hct (34.0-46.0) % MCV (80.0-100.0) fL MCH (25.0-35.0) pg MCHC (31.0-37.0) g/dL RDW (11.5-15.5) % Plt Count (150-450) k/uL MPV Neutrophils % % Lymphocytes % % Monocytes % % Eosinophils % % Basophils % % Neutrophils # (1.3-7.7) k/uL Lymphocytes # (1.0-4.8) k/uL Monocytes # (0-1.0) k/uL Eosinophils # (0-0.7) k/uL Basophils # (0-0.2) k/uL Hypochromasia Anisocytosis Microcytosis PT (10.0-12.5) sec INR (<1.2) APTT (22.0-30.0) sec D-Dimer (<0.60) mg/L FEU Sodium (137-145) mmol/L Potassium (3.5-5.1) mmol/L Chloride (98-107) mmol/L Carbon Dioxide (22-30) mmol/L Anion Gap mmol/L BUN (7-17) mg/dL Creatinine (0.52-1.04) mg/dL Est GFR (CKD-EPI)AfAm (>60 ml/min/1.73 sqM) Est GFR (CKD-EPI)NonAf (>60 ml/min/1.73 sqM) Glucose (74-99) mg/dL Calcium (8.4-10.2) mg/dL Magnesium (1.6-2.3) mg/dL Total Bilirubin (0.2-1.3) mg/dL AST (14-36) U/L ALT (4-34) U/L Alkaline Phosphatase (38-126) U/L Troponin I <0.012 (0.000-0.034) ng/mL Total Protein (6.3-8.2) g/dL Albumin (3.5-5.0) g/dL Lipase (23-300) U/L Urine Color [place] Urine Appearance Clear (Clear) Urine pH 8.0 (5.0-8.0) Ur Specific [place] 1.020 (1.001-1.035) Urine Protein Trace H (Negative) Urine Glucose (UA) Negative (Negative) Urine Ketones Negative (Negative) Urine Blood Large (Negative) Urine Nitrite Negative (Negative) Urine Bilirubin Negative (Negative) Urine Urobilinogen <2.0 (<2.0) mg/dL Ur Leukocyte Esterase Large (Negative) Urine RBC >182 H (0-5) /hpf Urine WBC 33 H (0-5) /hpf Ur Squamous Epith Cells 1 (0-4) /hpf Urine HCG, Qual Not Detected (Not Detectd) Disposition Clinical Impression: Acute cholecystitis Disposition: ADMITTED IP TO THIS HOSP Condition: Stable Is patient prescribed a controlled substance at d/c from ED?: No Referrals: Rin Awan DO [Primary Care Provider] - 1-2 days Time of Disposition: 15:44
[2023-08-15 13:13] LABS: Anisocytosis Slight; Basophils % (A) 0 %; Eosinophils # (A) 0.1 k/uL (0-0.7); Eosinophils % (A) 1 %; HCT 35.6 % (34.0-46.0); HGB 11.1 gm/dL (11.4-16.0); Hypochromasia Moderate; Lymphocytes # (A) 3.2 k/uL (1.0-4.8); Lymphocytes % (A) 34 %; MCH 22.1 pg (25.0-35.0); MCHC 31.1 g/dL (31.0-37.0); MCV 71.1 fL (80.0-100.0); Mean Platelet Volume 6.7; Microcytosis Marked; Monocytes # (A) 0.5 k/uL (0-1.0); Monocytes % (A) 5 %; Neutrophils # (A) 5.5 k/uL (1.3-7.7); Neutrophils % (A) 58 %; Platelet Count 349 k/uL (150-450); RBC 5.01 m/uL (3.80-5.40); RDW 17.3 % (11.5-15.5); WBC 9.5 k/uL (3.8-10.6)
--- NOTE | 2023-08-15 13:28 | XR ---
EXAMINATION TYPE: XR chest 2V DATE OF EXAM: 08/15/2023 1:04 PM CLINICAL INDICATION:Female, 42 years old with history of Chest Pain; COMPARISON: Chest radiographs from 08/25/2022. TECHNIQUE: XR chest 2V Frontal and lateral views of the chest. FINDINGS: Lungs/Pleura: There is no evidence of pleural effusion, focal consolidation, or pneumothorax. Pulmonary vascularity: Unremarkable. Heart/mediastinum: Cardiomediastinal silhouette is unremarkable. Musculoskeletal: No acute osseous pathology. IMPRESSION: No acute cardiopulmonary disease/process.
[2023-08-15 13:35] LABS: ALT 21 U/L (4-34); AST 23 U/L (14-36); African American GFR (CKD) >90 (>60 ml/min/1.73 sqM); Albumin 4.4 g/dL (3.5-5.0); Alkaline Phosphatase 97 U/L (38-126); Anion Gap 14 mmol/L; Blood Urea Nitrogen 13 mg/dL (7-17); Calcium 9.4 mg/dL (8.4-10.2); Carbon Dioxide 21 mmol/L (22-30); Chloride 104 mmol/L (98-107); Glucose 95 mg/dL (74-99); INR 0.9 (<1.2); Lipase 84 U/L (23-300); Magnesium 2.1 mg/dL (1.6-2.3); Non-African American GFR(CKD) >90 (>60 ml/min/1.73 sqM); Partial Thromboplastin Time 24.1 sec (22.0-30.0); Potassium 4.1 mmol/L (3.5-5.1); Prothrombin Time 9.8 sec (10.0-12.5); Sodium 139 mmol/L (137-145); Total Bilirubin 0.4 mg/dL (0.2-1.3); Total Protein 7.6 g/dL (6.3-8.2)
[2023-08-15 15:20] LABS: Appearance,Urine Clear (Clear); Bilirubin,Urine Negative (Negative); Blood,Urine Large (Negative); Color,Urine Light Orange; Glucose,Urine (UA) Negative (Negative); Ketones,Urine Negative (Negative); Protein,Urine Trace (Negative); Urobilinogen,Urine <2.0 mg/dL (<2.0)
[2023-08-15 15:21] LABS: Leukocyte Esterase,Urine Large (Negative); Nitrite,Urine Negative (Negative)
[2023-08-15 15:36] LABS: RBC,Urine >182 /hpf (0-5); Squamous Epithelial Cell,Urine 1 /hpf (0-4); WBC,Urine 33 /hpf (0-5)
--- NOTE | 2023-08-15 15:38 | US ---
EXAMINATION TYPE: US gallbladder DATE OF EXAM: 08/15/2023 COMPARISON: NONE CLINICAL INDICATION: Female, 42 years old with history of epigastric ruq pain since 10 am. Hx Bariatr ic surgery, fibromyalgia, anemia, and intermittent constipation TECHNIQUE: Multiple sonographic images of the right upper quadrant are obtained. FINDINGS: EXAM MEASUREMENTS: Liver Length: 16.4 Gallbladder Wall: 0.3m CBD: 0.5m Right Kidney: 11.0 x 5.2 x 4.9 cm DIETARY AIDE COOK NOTES: Pancreas: Tail obscured by overlying bowel gas Liver: wnl Gallbladder: stones Evidence for sonographic Steele's sign: Yes CBD: wnl Right Kidney: wnl IMPRESSION: 1. Cholelithiasis. There is a positive Steele sign. Correlate for acute cholecystitis. 2. Hepatomegaly
[2023-08-15] MEDS ORDERED: HYDROmorphone 0.5 MG/0.5 ML SYRINGE IVP STA (15:51)
[2023-08-15] MEDS ORDERED: HYDROmorphone 0.5 MG/0.5 ML SYRINGE IVP PRN (15:54)
[2023-08-15] MEDS ORDERED: NALOXONE 0.4 MG/ML 1 ML VIAL IV PRN (15:54)
[2023-08-15] MEDS ORDERED: ONDANSETRON 4 MG/2 ML VIAL IVP PRN ×2 (15:54→18:31)
[2023-08-15] MEDS: SODIUM CHLORIDE 0.9% 1,000 ML IV SCH (16:02)
[2023-08-15] MEDS ORDERED: HEPARIN SODIUM,PORCINE/PF 5,000 UNIT/0.5 ML SYRINGE SQ ONE (17:19)
--- NOTE | 2023-08-15 17:22 | P.GSHP ---
History of Present Illness H&P Date: 08/15/23 Chief Complaint: Right upper quadrant pain This is a 42-year-old female who complaints of right upper quadrant pain. Patient worked up emergency room found evidence acute cholecystitis. Past Medical History Past Medical History: Fibromyalgia Additional Past Medical History / Comment(s): PCOS History of Any Multi-Drug Resistant Organisms: None Reported Past Surgical History: No Surgical Hx Reported, Bariatric Surgery Additional Past Surgical History / Comment(s): EGD sleeve gastrectomy 12-23-17 Past Anesthesia/Blood Transfusion Reactions: No Reported Reaction Additional Past Anesthesia/Blood Transfusion Reaction / Comment(s): PATIENT HAS NEVER HAD ANESTHESIA IN THE PAST Past Psychological History: Anxiety, Depression Smoking Status: Former smoker Past Alcohol Use History: None Reported Past Drug Use History: None Reported - Past Family History Mother Family Medical History: No Reported History Medications and Allergies Home Medications Medication Instructions Recorded Confirmed Type Omeprazole [PriLOSEC] 20 mg PO HS 01/20/18 08/15/23 History DULoxetine HCL 20 mg PO HS 08/15/23 08/15/23 History DULoxetine HCL [Cymbalta] 60 mg PO HS 08/15/23 08/15/23 History Ferrous Fumarate 324 Mg (106mg 1 tab PO HS 08/15/23 08/15/23 History Iron) Tab Meclizine HCl [Antivert] 25 mg PO Q6H PRN 08/15/23 08/15/23 History lamoTRIgine [LaMICtal] 150 mg PO HS 08/15/23 08/15/23 History Allergies Allergy/AdvReac Type Severity Reaction Status Date / Time Iodinated Contrast Media Allergy Dyspnea Verified 08/15/23 14:25 [Iodinated Contrast- Oral and IV Dye] adhesive tape AdvReac redness Verified 08/15/23 14:25 Surgical - Exam Vital Signs Temp Pulse Resp BP Pulse Ox 98.2 F 86 24 128/80 100 08/15/23 12:40 08/15/23 12:40 08/15/23 12:40 08/15/23 12:40 08/15/23 12:40 - General well developed, well nourished, no distress - Eyes PERRL - ENT normal pinna - Neck no masses - Respiratory normal expansion - Cardiovascular Rhythm: regular - Abdomen Abdomen: soft, non tender Results - Labs 08/15/23 12:53 08/15/23 12:53 Abnormal Lab Results - Last 24 Hours (Table) 08/15/23 08/15/23 08/15/23 Range/Units 12:53 12:53 12:53 Hgb 11.1 L (11.4-16.0) gm/dL MCV 71.1 L (80.0-100.0) fL MCH 22.1 L (25.0-35.0) pg RDW 17.3 H (11.5-15.5) % PT 9.8 L (10.0-12.5) sec Carbon Dioxide 21 L (22-30) mmol/L Urine Protein (Negative) Urine RBC (0-5) /hpf Urine WBC (0-5) /hpf 08/15/23 Range/Units 14:19 Hgb (11.4-16.0) gm/dL MCV (80.0-100.0) fL MCH (25.0-35.0) pg RDW (11.5-15.5) % PT (10.0-12.5) sec Carbon Dioxide (22-30) mmol/L Urine Protein Trace H (Negative) Urine RBC >182 H (0-5) /hpf Urine WBC 33 H (0-5) /hpf Diabetes panel 08/15/23 Range/Units 12:53 Sodium 139 (137-145) mmol/L Potassium 4.1 (3.5-5.1) mmol/L Chloride 104 (98-107) mmol/L Carbon Dioxide 21 L (22-30) mmol/L BUN 13 (7-17) mg/dL Creatinine 0.57 (0.52-1.04) mg/dL Glucose 95 (74-99) mg/dL Calcium 9.4 (8.4-10.2) mg/dL AST 23 (14-36) U/L ALT 21 (4-34) U/L Alkaline Phosphatase 97 (38-126) U/L Total Protein 7.6 (6.3-8.2) g/dL Albumin 4.4 (3.5-5.0) g/dL Calcium panel 08/15/23 Range/Units 12:53 Calcium 9.4 (8.4-10.2) mg/dL Albumin 4.4 (3.5-5.0) g/dL Pituitary panel 08/15/23 Range/Units 12:53 Sodium 139 (137-145) mmol/L Potassium 4.1 (3.5-5.1) mmol/L Chloride 104 (98-107) mmol/L Carbon Dioxide 21 L (22-30) mmol/L BUN 13 (7-17) mg/dL Creatinine 0.57 (0.52-1.04) mg/dL Glucose 95 (74-99) mg/dL Calcium 9.4 (8.4-10.2) mg/dL Adrenal panel 08/15/23 Range/Units 12:53 Sodium 139 (137-145) mmol/L Potassium 4.1 (3.5-5.1) mmol/L Chloride 104 (98-107) mmol/L Carbon Dioxide 21 L (22-30) mmol/L BUN 13 (7-17) mg/dL Creatinine 0.57 (0.52-1.04) mg/dL Glucose 95 (74-99) mg/dL Calcium 9.4 (8.4-10.2) mg/dL Total Bilirubin 0.4 (0.2-1.3) mg/dL AST 23 (14-36) U/L ALT 21 (4-34) U/L Alkaline Phosphatase 97 (38-126) U/L Total Protein 7.6 (6.3-8.2) g/dL Albumin 4.4 (3.5-5.0) g/dL Assessment and Plan Assessment: Right upper quadrant pain. We'll perform laparoscopic cholecystectomy.
[2023-08-15] MEDS ORDERED: FAMOTIDINE 20 MG/2 ML VIAL IVP ONE (17:29)
[2023-08-15] MEDS ORDERED: DEXAMETHASONE SOD PHOSPHATE 4 MG/ML 1 ML VIAL IVP ONE (17:30)
[2023-08-15] MEDS ORDERED: IV FLUID CONTINUATION 1,000 ML IV ONE ×2 (17:31→19:39)
[2023-08-15] MEDS ORDERED: ONDANSETRON 4 MG/2 ML VIAL IVP ONE (17:31)
[2023-08-15] MEDS ORDERED: diphenhydrAMINE 50 MG/ML 1 ML VIAL IVP ONE (17:32)
[2023-08-15] MEDS ORDERED: HEPARIN SODIUM,PORCINE 5,000 UNIT/ML 1 ML VIAL SQ ONE (17:32)
[2023-08-15] MEDS ORDERED: HYDROmorphone (PF) 1 MG/ML ONE (17:47)
[2023-08-15] MEDS ORDERED: LIDOCAINE 1% INJ 10MG/ML (20 ML MDV) ONE (17:47)
[2023-08-15] MEDS ORDERED: SUCCINYLCHOLINE CHLORIDE 200 MG/10 ML VIAL IV ONE (17:47)
[2023-08-15] MEDS ORDERED: PROPOFOL 10 MG/ML 20 ML VIAL IV ONE (17:47)
[2023-08-15] MEDS ORDERED: MIDAZOLAM 2 MG/2 ML VIAL ONE (17:47)
[2023-08-15] MEDS ORDERED: fentaNYL (PF) 50 MCG/ML 2 ML AMP ONE (17:47)
[2023-08-15] MEDS ORDERED: NEOSTIGMINE 1 MG/ML 10 ML VIAL ONE (17:47)
[2023-08-15] MEDS ORDERED: ROCURONIUM 10 MG/ML (5 ML VIAL) IV ONE (17:47)
[2023-08-15] MEDS ORDERED: GLYCOPYRROLATE 0.2 MG/ML 2 ML VIAL ONE (17:47)
[2023-08-15] MEDS ORDERED: SODIUM CHLORIDE 0.9% 50 ML with ceFAZolin 2,000 MG IV ONE ×2 (17:48)
[2023-08-15] MEDS ORDERED: BUPIVACAINE (PF) 0.25% 30 ML VIAL SQ ONE (18:07)
[2023-08-15] MEDS ORDERED: HYDROmorphone 1 MG/ML 1 ML SYRINGE IVP PRN (18:31)
--- NOTE | 2023-08-15 18:31 | P.OP ---
Date of Procedure: 08/15/23 Preoperative Diagnosis: Cholecystitis Postoperative Diagnosis: Cholecystitis Cholelithiasis Procedure(s) Performed: Laparoscopic cholecystectomy Anesthesia: MARIALUISA Surgeon: Naveen Padilla Estimated Blood Loss (ml): 10 Pathology: other (Gallbladder) Condition: stable Disposition: PACU Description of Procedure: The patient was placed on the operating table. The patient received a general endotracheal tube anesthesia. The patients abdomen was prepped and draped in the usual sterile fashion. Through an infraumbilical stab incision, the fascia of the anterior abdominal wall was grasped with a pair of Kochers and then the Veress needle was placed in the peritoneal cavity. Position of the Veress needle was confirmed with positive drop test. The abdomen was then insufflated. After adequate insufflation, the 10 mm trocar was placed in the peritoneal cavity. Following this the laparoscope was placed in the peritoneal cavity. The patient was placed in the head-up, right side up position and then a 5 mm trocar was placed in the right lateral and right subcostal position under direct visualization. A 8 mm trocar was placed in the epigastric position. The gallbladder was grasped in the fundus and infundibulum. Traction on the gallbladder was placed in the lateral and the cephalad positions. The triangle of Calot was visualized.. The cystic duct was bluntly dissected until the union of the cystic duct and common bile duct was seen. A critical view of safety was achieved. The cystic duct was then divided and sealed with the Harmonic scissors. A PDS Endoloop was then placed throughout the cystic duct stump. The cystic artery divided and sealed with the Harmonic scissors. The gallbladder was then removed from the liver bed using Harmonic scissors. The gallbladder was then extracted through the epigastric port site. Operative field was checked for any bleeding spots and Harmonic scissors was used to coagulate the liver bed. The abdomen was irrigated. The trocars were removed. The skin was closed using interrupted 3-0 Vicryl suture. Dermabond dressing were applied. The patient tolerated the procedure well.
[2023-08-15] MEDS ORDERED: HYDROmorphone 0.5 MG/0.5 ML SYRINGE IVP ONE (18:52)
[2023-08-15] MEDS: HYDROcodone/APAP 7.5-325MG 1 EACH TAB PO PRN (20:32)
[2023-08-16] MEDS: HYDROcodone/APAP 7.5-325MG 1 EACH TAB PO PRN (05:14)
[2023-08-16] MEDS: SODIUM CHLORIDE 0.9% 1,000 ML IV SCH ×2 (05:15→17:10)
[2023-08-16] MEDS ORDERED: ENOXAPARIN 40 MG/0.4 ML SYRINGE SQ SCH (09:00)
[2023-08-16] MEDS ORDERED: MECLIZINE 25 MG TAB PO PRN (09:39)
[2023-08-16] MEDS ORDERED: PANTOPRAZOLE 40 MG TABLET PO SCH (09:45)
[2023-08-16] MEDS ORDERED: KETOROLAC 15 MG/ML 1 ML VIAL IVP STA (10:01)
--- NOTE | 2023-08-16 11:20 | P.DS ---
Providers Date of admission: 08/15/23 15:55 Expected date of discharge: 08/16/23 Attending physician: Naveen Padilla Consults: 08/15/23 18:31 Consult Physician Routine Consulting Provider: Isael Taylor Consult Reason/Comments: Medical management Do you want consulting provider notified?: Yes Primary care physician: Rin Awan Hospital Course: Discharge diagnosis 1. Cholecystitis and cholelithiasis status post laparoscopic cholecystectomy Hospital course This is a 42-year-old female who presented with right upper quadrant abdominal pain and was found have evidence of acute cholecystitis. She is status post laparoscopic cholecystectomy. Patient's pain is controlled. She has been up and ambulating. She is tolerating diet. Afebrile. She is stable for discharge. Please refer to chart for any further details. Physician Dermatological Surgeon note has been reviewed by physician. Signing provider agrees with the documented findings, assessment, and plan of care. Patient Condition at Discharge: Stable Plan - Discharge Summary New Discharge Prescriptions: New Simethicone 40 mg/0.6 ml Drops [Mylicon Drops] 40 mg PO QID ml Acetaminophen Tab [Tylenol] 1,000 mg PO Q6HR PRN #30 tablet PRN Reason: Pain Ibuprofen [Motrin] 600 mg PO Q8HR PRN #30 tab PRN Reason: Pain Continue Omeprazole [PriLOSEC] 20 mg PO HS Ferrous Fumarate 324 Mg (106mg Iron) Tab 1 tab PO HS DULoxetine HCL [Cymbalta] 60 mg PO HS DULoxetine HCL 20 mg PO HS lamoTRIgine [LaMICtal] 150 mg PO HS Meclizine HCl [Antivert] 25 mg PO Q6H PRN PRN Reason: anxiety attack Discharge Medication List Omeprazole [PriLOSEC] 20 mg PO HS 01/20/18 [History] DULoxetine HCL 20 mg PO HS 08/15/23 [History] DULoxetine HCL [Cymbalta] 60 mg PO HS 08/15/23 [History] Ferrous Fumarate 324 Mg (106mg Iron) Tab 1 tab PO HS 08/15/23 [History] Meclizine HCl [Antivert] 25 mg PO Q6H PRN 08/15/23 [History] lamoTRIgine [LaMICtal] 150 mg PO HS 08/15/23 [History] Acetaminophen Tab [Tylenol] 1,000 mg PO Q6HR PRN #30 tablet 08/16/23 [Rx] Ibuprofen [Motrin] 600 mg PO Q8HR PRN #30 tab 08/16/23 [Rx] Simethicone 40 mg/0.6 ml Drops [Mylicon Drops] 40 mg PO QID ml 08/16/23 [Rx] Follow up Appointment(s)/Referral(s): Rin Awan DO [Primary Care Provider] - 1-2 days Naveen Padilla MD [STAFF PHYSICIAN] - 1 Week Activity/Diet/Wound Care/Special Instructions: No lifting over 10 pounds Shower daily. No soaking or tub baths for 2 weeks Very light activity until you are reevaluated at your follow up appointment with your surgeon Continue a Full liquid diet over the next couple of days and then advance as tolerated Discharge Disposition: HOME SELF-CARE
[2023-08-16] MEDS ORDERED: PANTOPRAZOLE 40 MG/10 ML VIAL IVP SCH (12:00)
[2023-08-16 13:00] LABS: ALT 26 U/L (4-34); African American GFR (CKD) >90 (>60 ml/min/1.73 sqM); Albumin 4.1 g/dL (3.5-5.0); Albumin/Globulin Ratio 1.2; Anion Gap 11 mmol/L; Blood Urea Nitrogen 9 mg/dL (7-17); Calcium 9.4 mg/dL (8.4-10.2); Carbon Dioxide 25 mmol/L (22-30); Chloride 103 mmol/L (98-107); Globulin 3.3 g/dL; Glucose 84 mg/dL (74-99); Non-African American GFR(CKD) >90 (>60 ml/min/1.73 sqM); Sodium 139 mmol/L (137-145); Total Bilirubin 0.6 mg/dL (0.2-1.3); Total Protein 7.4 g/dL (6.3-8.2)
[2023-08-16 13:01] LABS: Potassium 4.4 mmol/L (3.5-5.1)
[2023-08-16 13:02] LABS: AST 37 U/L (14-36); Alkaline Phosphatase 76 U/L (38-126)
--- NOTE | 2023-08-16 13:08 | CONS ---
CONSULTATION REASON FOR CONSULTATION: Recommendation regarding fibromyalgia and other medical issues requested by Dr. Padilla. HISTORY OF PRESENT ILLNESS: This is a 42-year-old woman with a past medical history of fibromyalgia, polycystic ovarian syndrome, bariatric surgery, was admitted after laparoscopic cholecystectomy for cholelithiasis and cholecystitis. The patient is complaining of some nausea and abdominal discomfort. There is no history of any fever or rigors. PAST MEDICAL HISTORY: Reviewed include fibromyalgia, history of bariatric surgery, rest of the history and rest of the chart is also reviewed. HOME MEDICATIONS: Reviewed include Lamictal, dose and rest of the medications are reviewed. ALLERGIES: Iodinated contrast dye. FAMILY HISTORY: No history of heart disease or strokes in the family. SOCIAL HISTORY: Previous history of smoking. REVIEW OF SYSTEMS: A 14-point review is negative except as mentioned earlier. PHYSICAL EXAMINATION: VITAL SIGNS: Pulse 57, blood pressure 117/76, and respirations 12. HEENT: Conjunctivae normal. NECK: No jugular venous distention. CARDIOVASCULAR: S1 and S2 muffled. RESPIRATORY: Breath sounds diminished at the bases. ABDOMEN: Soft status post surgery. No guarding, no rigidity. LEGS: No edema. NERVOUS SYSTEM: No focal deficits. SKIN: No ulcer, rash, bleeding. JOINTS: No active deforming arthropathy. LABORATORY DATA: Reviewed. ASSESSMENT: 1. Status post laparoscopic cholecystectomy for cholecystitis and cholelithiasis. 2. Fibromyalgia. 3. Polycystic ovaries. RECOMMENDATIONS AND DISCUSSION: This 42-year-old woman presented with multiple complex medical issues, we will monitor the patient closely. Recommended proton pump inhibitors, symptomatic treatment, and closely follow with surgery and further recommendations to follow. See orders for details. MMODL / IJN: [id number] / MTDD
[2023-08-16 13:40] LABS: Anisocytosis Slight; Basophils % (A) 0 %; Eosinophils % (A) 0 %; HCT 35.7 % (34.0-46.0); HGB 10.9 gm/dL (11.4-16.0); Hypochromasia Marked; Lymphocytes # (A) 3.3 k/uL (1.0-4.8); Lymphocytes % (A) 29 %; MCH 22.2 pg (25.0-35.0); MCHC 30.6 g/dL (31.0-37.0); MCV 72.7 fL (80.0-100.0); Mean Platelet Volume 6.7; Microcytosis Moderate; Monocytes # (A) 0.6 k/uL (0-1.0); Monocytes % (A) 5 %; Neutrophils % (A) 63 %; Platelet Count 346 k/uL (150-450); RDW 17.2 % (11.5-15.5); WBC 11.1 k/uL (3.8-10.6)
[2023-08-16] MEDS ORDERED: ACETAMINOPHEN TAB 500 MG TAB PO STA (13:49)
[2023-08-16 13:52] VITALS: BP 124/77; PULSE 68; RESP 16; TEMP 98.3
[2023-08-16] MEDS: SIMETHICONE 40 MG/0.6 ML DROPS 2,000 MG/30 ML BOTTLE PO SCH ×2 (14:00→14:03)
[2023-08-16] MEDS ORDERED: FERROUS SULFATE 325 MG TAB PO SCH (21:00)
[2023-08-16] MEDS ORDERED: DULoxetine HCL 60 MG CAPSULE.DR PO SCH (21:00)
[2023-08-16] MEDS ORDERED: lamoTRIgine 100 MG TAB PO SCH (21:00)
[2023-08-16] MEDS ORDERED: DULoxetine HCL 20 MG CAPSULE.DR PO SCH (21:00)
== END 2023-08-16 17:11 | disposition home or self-care (01) ==
LOC: EC 12:39 → 6NMEDSUR 15:55
PROVIDERS: ADMIT Surgery; ATTEND Surgery
DX: K80.10 Calculus of gallbladder with chronic cholecystitis without obstruction (principal); F32.A Depression, unspecified; F41.9 Anxiety disorder, unspecified; Z87.891 Personal history of nicotine dependence; Z79.899 Other long term (current) drug therapy; M79.7 Fibromyalgia; E28.2 Polycystic ovarian syndrome
CPT/HCPCS: 96361; 96372; 96375; 96365; 99285; 36415; 93005; 85379; 80053 ×2; 83690; 83735; 84484; 85025 ×2; 85610; 85730; 81001; 81025; 71046; 76705; 47562; G0378 ×2; J2250; J0330; J1200; J1644; J1100; J2710; J2405; J0690; J0696; J2001; J1650; J3010; J3490; J1170 ×3; J1885; J2704; J0665; 88304

== ENCOUNTER 2023-09-29 19:43 | Emergency (ER) | payer OTHER ==
[2023-09-29] MEDS ORDERED: KETOROLAC 15 MG/ML 1 ML VIAL IM STA (20:03)
[2023-09-29 20:10] VITALS: TEMP 98.3
--- NOTE | 2023-09-29 20:24 | XR ---
EXAMINATION TYPE: XR shoulder complete LT DATE OF EXAM: 09/29/2023 8:19 PM CLINICAL INDICATION:Female, 42 years old with history of fall, shoulder pain. COMPARISON: None. TECHNIQUE: The left shoulder was examined in AP, internally rotated and scapular Y projections. FINDINGS: No evidence of acute osseous pathology, joint dislocation, or soft tissue swelling. The remaining por tions of the visualized chest are unremarkable. IMPRESSION: No acute osseous pathology.
--- NOTE | 2023-09-29 20:35 | ED ---
Upper Extremity HPI - General Chief Complaint: Extremity Injury, Upper Stated Complaint: Fall, L Shoulder Pain Time Seen by Provider: 09/29/23 19:57 Source: patient Mode of arrival: ambulatory Limitations: no limitations - History of Present Illness Initial Comments: 42-year-old female presenting with chief complaint of left shoulder pain. Patient states that she slipped on ice today she reached up and was able to catch herself on a pole from her porch with her left arm. She did not have pain immediately following, however throughout the day her left shoulder is progressively more painful. She is having some numbness and tingling. - Related Data Home Medications Medication Instructions Recorded Confirmed Omeprazole [PriLOSEC] 20 mg PO HS 01/20/18 08/15/23 DULoxetine HCL 20 mg PO HS 08/15/23 08/15/23 DULoxetine HCL [Cymbalta] 60 mg PO HS 08/15/23 08/15/23 Ferrous Fumarate 324 Mg (106mg 1 tab PO HS 08/15/23 08/15/23 Iron) Tab Meclizine HCl [Antivert] 25 mg PO Q6H PRN 08/15/23 08/15/23 lamoTRIgine [LaMICtal] 150 mg PO HS 08/15/23 08/15/23 Previous Rx's Medication Instructions Recorded Acetaminophen Tab [Tylenol] 1,000 mg PO Q6HR PRN #30 tablet 08/16/23 Docusate [Colace] 100 mg PO BID #20 capsule 08/16/23 Ibuprofen [Motrin] 600 mg PO Q8HR PRN #30 tab 08/16/23 Ondansetron [Zofran] 4 mg PO Q8HR PRN #20 tab 08/16/23 Simethicone 40 mg/0.6 ml Drops 40 mg PO QID ml 08/16/23 [Mylicon Drops] oxyCODONE HCL [OxyIR] 5 mg PO Q6H PRN 3 Days #10 tab 08/16/23 Allergies Allergy/AdvReac Type Severity Reaction Status Date / Time Iodinated Contrast Media Allergy Dyspnea Verified 09/29/23 19:53 [Iodinated Contrast- Oral and IV Dye] adhesive tape AdvReac redness Verified 09/29/23 19:53 Review of Systems ROS Statement: Those systems with pertinent positive or pertinent negative responses have been documented in the HPI. ROS Other: All systems not noted in ROS Statement are negative. Past Medical History Past Medical History: Fibromyalgia Additional Past Medical History / Comment(s): PCOS, anemia History of Any Multi-Drug Resistant Organisms: None Reported Past Surgical History: Bariatric Surgery, Cholecystectomy Additional Past Surgical History / Comment(s): EGD sleeve gastrectomy 12-23-17 Past Anesthesia/Blood Transfusion Reactions: No Reported Reaction Additional Past Anesthesia/Blood Transfusion Reaction / Comment(s): PATIENT HAS NEVER HAD ANESTHESIA IN THE PAST Past Psychological History: Anxiety, Depression Smoking Status: Former smoker Past Alcohol Use History: None Reported Past Drug Use History: None Reported - Past Family History Mother Family Medical History: No Reported History General Exam Limitations: no limitations General appearance: alert, in distress (crying, in pain) Head exam: Present: atraumatic, normocephalic Eye exam: Present: normal appearance, EOMI Neck exam: Present: normal inspection Respiratory exam: Absent: respiratory distress Cardiovascular Exam: Present: regular rate Left Shoulder Exam: Present: normal inspection, tenderness Vascular: Present: radial pulse (2+). Absent: vascular compromise Neurological exam: Present: alert, oriented X3 Psychiatric exam: Present: normal affect, normal mood Skin exam: Present: warm, dry Course Vital Signs 09/29/23 19:51 Temperature 98.3 F Pulse Rate 92 Respiratory 18 Rate Blood Pressure 121/64 O2 Sat by Pulse 98 Oximetry Medical Decision Making - Medical Decision Making Was pt. sent in by a medical professional or institution (, PA, COMMERCIAL ACCOUNT OFFICER, urgent care, hospital, or senior care...) When possible be specific @ -No Did you speak to anyone other than the patient for history (EMS, parent, family, police, friend...)? What history was obtained from this source @ -No Did you review nursing and triage notes (agree or disagree)? Why? @ -I reviewed and agree with nursing and triage notes Were old charts reviewed (outside hosp., previous admission, EMS record, old EKG, old radiological studies, urgent care reports/EKG's, senior care records)? Report findings @ -No old charts were reviewed Differential Diagnosis (chest pain, altered mental status, abdominal pain women, abdominal pain men, vaginal bleeding, weakness, fever, dyspnea, syncope, headache, dizziness, GI bleed, back pain, seizure, CVA, palpatations, mental health, musculoskeletal)? @ -Differential Musculoskeletal Muscular strain, contusion, ligament sprain, fracture, arthritis, septic arthritis, bursitis, cellulitis, muscle spasm, nerve compression, DVT, arterial occlusion, herpes zoster, electrolyte abnormality, tumor.... This is not meant to be in all inclusive list EKG interpreted by me (3pts min.). @ -As above X-rays interpreted by me (1pt min.). @ -X-ray shows no fracture or dislocation CT interpreted by me (1pt min.). @ -None done U/S interpreted by me (1pt. min.). @ -None done What testing was considered but not performed or refused? (CT, X-rays, U/S, labs)? Why? @ -None What meds were considered but not given or refused? Why? @ -None Did you discuss the management of the patient with other professionals (professionals i.e. , PA, COMMERCIAL ACCOUNT OFFICER, lab, RT, psych nurse, nephrology social worker, health screener, teacher, biological technical officer, case manager specialist)? Give summary @ -No Was smoking cessation discussed for >3mins.? @ -No Was critical care preformed (if so, how long)? @ -No Were there social determinants of health that impacted care today? How? (Homelessness, low income, unemployed, alcoholism, drug addiction, transportation, low edu. Level, literacy, decrease access to med. care, nursing home, rehab)? @ -No Was there de-escalation of care discussed even if they declined (Discuss DNR or withdrawal of care, Hospice)? DNR status @ -No What co-morbidities impacted this encounter? (DM, HTN, Smoking, COPD, CAD, Cancer, CVA, ARF, Chemo, Hep., AIDS, mental health diagnosis, sleep apnea, morbid obesity)? @ -None Was patient admitted / discharged? Hospital course, mention meds given and route, prescriptions, significant lab abnormalities, going to OR and other pertinent info. @ -42-year-old female presenting with chief complaint of left shoulder pain after an injury this morning. History and physical exam were conducted. She is neurovascularly intact. X-ray shows no fracture or dislocation. Patient was educated on shoulder sprain and provided with upper extremity sling. Discharged home. Follow-up with PCP. Report back to ER with any new or worsening symptoms. Discussed return parameters and answered all questions. Patient conveyed verbal understanding and agreed to the plan. I discussed this case in detail with my attending Dr. Euceda Undiagnosed new problem with uncertain prognosis? @ -No Drug Therapy requiring intensive monitoring for toxicity (Heparin, Nitro, Insulin, Cardizem)? @ -No Were any procedures done? @ -No Diagnosis/symptom? @ -Shoulder sprain Acute, or Chronic, or Acute on Chronic? @ -Acute Uncomplicated (without systemic symptoms) or Complicated (systemic symptoms)? @ -Uncomplicated Side effects of treatment? @ -No Exacerbation, Progression, or Severe Exacerbation? @ -No Poses a threat to life or bodily function? How? (Chest pain, [place], [place], pneumonia, PE, COPD, DKA, ARF, appy, cholecystitis, CVA, Diverticulitis, Homicidal, Suicidal, threat to staff... and all critical care pts) @ -No Disposition Clinical Impression: Shoulder sprain Disposition: HOME SELF-CARE Condition: Good Instructions (If sedation given, give patient instructions): Shoulder Sprain (ED) Additional Instructions: Follow-up with PCP. Report back to ER with any new or worsening symptoms. Take Motrin and Tylenol as needed for pain control. Is patient prescribed a controlled substance at d/c from ED?: No Referrals: Rin Awan DO [Primary Care Provider] - 1-2 days Time of Disposition: 20:38
[2023-09-29 21:18] VITALS: BP 120/67; PULSE 90; RESP 16
== END 2023-09-29 21:02 | disposition home or self-care (01) ==
LOC: EC 19:43
DX: S43.402A Unspecified sprain of left shoulder joint, initial encounter (principal); Z86.59 Personal history of other mental and behavioral disorders; Z87.891 Personal history of nicotine dependence; Z91.041 Radiographic dye allergy status; Z91.09 Other allergy status, other than to drugs and biological substances; W00.0XXA Fall on same level due to ice and snow, initial encounter
CPT/HCPCS: 73030; 99283; 96372; J1885

== ENCOUNTER 2024-11-16 11:00 | Emergency (ER) | payer OTHER ==
[2024-11-16 11:06] VITALS: TEMP 98.3
--- NOTE | 2024-11-16 11:34 | ED ---
Chest Pain HPI - General Chief Complaint: Chest Pain Stated Complaint: chest pain,back pain,dizzy Time Seen by Provider: 11/16/24 11:09 Source: patient, RN notes reviewed Mode of arrival: ambulatory Limitations: no limitations - History of Present Illness Initial Comments: This is a 43 year old female who presents to the emergency department for chest pain. States that it started yesterday when she was at work. This is a constant ache in the left side of her chest that shoots into her back between her shoulder blades. States that she also feels like her breathing is shallow. Also reports nausea. She tried taking ibuprofen but did not have any relief. Denies any history of similar pain in the past. Also denies any history of cardiac issues. States that she is feeling very anxious and believes that may also be a contributing factor. MD Complaint: chest pain - Related Data Home Medications Medication Instructions Recorded Confirmed Omeprazole [PriLOSEC] 20 mg PO HS 01/20/18 11/16/24 DULoxetine HCL 20 mg PO HS 08/15/23 11/16/24 DULoxetine HCL [Cymbalta] 60 mg PO HS 08/15/23 11/16/24 lamoTRIgine [LaMICtal] 150 mg PO BID 08/15/23 11/16/24 Eszopiclone [Lunesta] 1 mg PO HS PRN 11/16/24 11/16/24 hydrOXYzine pamoate [Vistaril] 25 mg PO TID PRN 11/16/24 11/16/24 Previous Rx's Medication Instructions Recorded Acetaminophen Tab [Tylenol] 1,000 mg PO Q6HR PRN #30 tablet 08/16/23 Ibuprofen [Motrin] 600 mg PO Q8HR PRN #30 tab 08/16/23 Ketorolac [Toradol] 10 mg PO Q6HR PRN #15 tab 11/16/24 Allergies Allergy/AdvReac Type Severity Reaction Status Date / Time Iodinated Contrast Media Allergy Dyspnea Verified 11/16/24 12:38 [Iodinated Contrast- Oral and IV Dye] adhesive tape AdvReac redness Verified 11/16/24 12:38 with PAPER tape Review of Systems ROS Statement: Those systems with pertinent positive or pertinent negative responses have been documented in the HPI. ROS Other: All systems not noted in ROS Statement are negative. Past Medical History Past Medical History: Fibromyalgia Additional Past Medical History / Comment(s): PCOS, anemia History of Any Multi-Drug Resistant Organisms: None Reported Past Surgical History: Bariatric Surgery, Cholecystectomy Additional Past Surgical History / Comment(s): EGD sleeve gastrectomy 12-23-17 Past Anesthesia/Blood Transfusion Reactions: No Reported Reaction Additional Past Anesthesia/Blood Transfusion Reaction / Comment(s): PATIENT HAS NEVER HAD ANESTHESIA IN THE PAST Past Psychological History: Anxiety, Depression Smoking Status: Former smoker Past Alcohol Use History: None Reported Past Drug Use History: None Reported - Past Family History Mother Family Medical History: No Reported History General Exam Limitations: no limitations General appearance: alert, anxious Head exam: Present: atraumatic, normocephalic, normal inspection Respiratory exam: Present: normal lung sounds bilaterally. Absent: respiratory distress, wheezes, rales, rhonchi, stridor Cardiovascular Exam: Present: regular rate, normal rhythm GI/Abdominal exam: Present: soft, normal bowel sounds. Absent: distended, tenderness, guarding, rebound, rigid Neurological exam: Present: alert, oriented X3, CN II-XII intact Psychiatric exam: Present: normal affect, normal mood Skin exam: Present: warm, dry, intact, normal color. Absent: rash Course Vital Signs 11/16/24 11/16/24 11/16/24 11:03 11:06 11:26 Temperature 98.3 F Pulse Rate 92 78 Respiratory 20 16 20 Rate Blood Pressure 120/70 116/74 O2 Sat by Pulse 98 98 Oximetry 11/16/24 11/16/24 12:06 13:08 Temperature Pulse Rate 78 68 Respiratory 16 16 Rate Blood Pressure 98/60 114/68 O2 Sat by Pulse 98 98 Oximetry Chest Pain MDM - MDM This is a 43-year-old female who presents to the emergency department for chest pain. Was pt. sent in by a medical professional or institution? @ -No Did you speak to anyone other than the patient for history? @ -No Did you review nursing and triage notes? @ -Yes, and I agree, it is accurate with regards to the patient's symptoms. Were old charts reviewed? @ -No Differential Diagnosis? @ -Differential Chest Pain: Stable Angina, Unstable Angina, STEMI, NSTEMI Aortic Dissection, Pneumothorax, Musculoskeletal, Esophageal Spasm GERD, Cholecystitis, Pancreatitis, Zoster, this is not meant to be an all-inclusive list. EKG interpreted by me (3pts min.)? @ -EKG interpreted by me demonstrating the following: Sinus rhythm. Ventricular rate 74 bpm, WA interval 137 ms, QRS duration 90 ms, QTc 397 ms. X-rays interpreted by me (1pt min.)? @ -Chest x-ray obtained, my interpretation identifies no localized consolidations or infiltrates. CT interpreted by me (1pt min.)? @ -Not obtained U/S interpreted by me (1pt. min.)? @ -Not obtained What testing was considered but not performed? (CT, X-rays, U/S, labs)? Why? @ -None What meds were considered but not given? Why? @ -None Did you discuss the management of the patient with other professionals? @ -No Did you reconcile home meds? @ -No Was smoking cessation discussed for >3mins.? @ -No Was critical care preformed (if so, how long)? @ -No Were there social determinants of health that impacted care today? How? (Homelessness, low income, unemployed, alcoholism, drug addiction, transportation, low edu. Level, literacy, decrease access to med. care, custodial, rehab)? @ -No Was there de-escalation of care discussed even if they declined? (Discuss DNR or withdrawal of care, Hospice)? @ -No What co-morbidities impacted this encounter? (DM, HTN, Smoking, COPD, CAD, Cancer, CVA, Hep., AIDS, mental health diagnosis, sleep apnea, morbid obesity)? @ -None Was patient admitted / discharged? @ -Discharged. Lab work unremarkable. D-dimer and troponin negative. Chest x-ray reveals no acute process. We did a trial of aspirin and nitroglycerin, however this was not effective. She was subsequently given a dose of Toradol. Patient has a cardiac score of 0-1. Given the unremarkable workup at this time with low cardiac score, advised that she can be discharged home. Toradol prescribed for pain control to see if that is more effective than ibuprofen. Advised she follow-up with her PCP in the next couple of days for reevaluation of symptoms. Strict return parameters discussed. Patient discharged home in stable condition. Case discussed with ED attending Dr. Leonardo. Return precautions reviewed in depth, the patient is instructed to return to the emergency department with any new, worsening, or concerning symptoms. Patient verbalized understanding. Undiagnosed new problem with uncertain prognosis? @ -None Drug Therapy requiring intensive monitoring for toxicity (Heparin, Nitro, Insulin, Cardizem)? @ -None Were any procedures done? @ -None Diagnosis/symptom? @ -Chest pain Acute, or Chronic, or Acute on Chronic? @ -Acute Uncomplicated (without systemic symptoms) or Complicated (systemic symptoms)? @ -Uncomplicated Side effects of treatment? @ -None Exacerbation, Progression, or Severe Exacerbation] @ -Not applicable Poses a threat to life or bodily function? @ -No Disposition Clinical Impression: Chest pain, Dizziness Disposition: HOME SELF-CARE Instructions (If sedation given, give patient instructions): Chest Pain (ED), Noncardiac Chest Pain (ED) Additional Instructions: Return to the emergency department with any new, worsening, or concerning symptoms. Take the Toradol with Tylenol as needed for pain relief. If you choose to take the Toradol, do not take any other anti-inflammatories such as ibuprofen, take one or the other. Follow up with your primary care provider in 1-2 days. Prescriptions: Ketorolac [Toradol] 10 mg PO Q6HR PRN #15 tab PRN Reason: Pain Is patient prescribed a controlled substance at d/c from ED?: No Referrals: Rin Awan DO [Primary Care Provider] - 1-2 days Time of Disposition: 12:55
[2024-11-16] MEDS: ASPIRIN 81 MG PO STA (11:36)
[2024-11-16] MEDS: NITROGLYCERIN SL TABS 0.4 MG TAB SUBLINGUAL STA (11:36)
[2024-11-16] MEDS: ONDANSETRON 4 MG/2 ML VIAL IVP STA (11:37)
[2024-11-16] MEDS: SODIUM CHLORIDE 0.9% 1,000 ML IV STA (11:38)
[2024-11-16] MEDS: LORazepam 2 MG/ML INJ IV STA (11:42)
[2024-11-16 12:03] LABS: Anisocytosis Slight; Basophils % (A) 1 %; Eosinophils # (A) 0.1 k/uL (0-0.7); Eosinophils % (A) 1 %; HCT 41.6 % (34.0-46.0); HGB 12.4 gm/dL (11.4-16.0); Hypochromasia Marked; Lymphocytes # (A) 2.7 k/uL (1.0-4.8); Lymphocytes % (A) 38 %; MCH 22.8 pg (25.0-35.0); MCHC 29.9 g/dL (31.0-37.0); MCV 76.4 fL (80.0-100.0); Mean Platelet Volume 6.2; Microcytosis Moderate; Monocytes # (A) 0.3 k/uL (0-1.0); Monocytes % (A) 5 %; Neutrophils % (A) 54 %; Platelet Count 295 k/uL (150-450); RBC 5.44 m/uL (3.80-5.40); RDW 19.9 % (11.5-15.5); WBC 7.3 k/uL (3.8-10.6)
[2024-11-16 12:12] LABS: HCG,Qualitative Serum Not Detected
[2024-11-16 12:19] LABS: Potassium 5.5 mmol/L (3.5-5.1)
--- NOTE | 2024-11-16 12:19 | XR ---
EXAMINATION TYPE: XR chest 2V DATE OF EXAM: 11/16/2024 CLINICAL INDICATION: Female, 43 years old with history of Chest Pain, TECHNIQUE: Frontal and lateral views of the chest are obtained. COMPARISON: Chest x-ray August 15, 2023 FINDINGS: There is no focal air space opacity, pleural effusion, or pneumothorax seen. The cardiac silhouette size is stable and within normal limits. The osseous structures are intact. IMPRESSION: No acute process. [facility], , 11/16/2024 12:16 PM
[2024-11-16 12:22] LABS: INR 0.9 (<1.2)
[2024-11-16 12:23] LABS: Partial Thromboplastin Time 24.7 sec (22.0-30.0); Prothrombin Time 10.6 sec (10.0-12.5)
[2024-11-16 12:40] VITALS: RESP 16
[2024-11-16 12:45] LABS: ALT 18 U/L (4-34); AST 18 U/L (14-36); African American GFR (CKD) >90 (>60 ml/min/1.73 sqM); Albumin 4.7 g/dL (3.5-5.0); Alkaline Phosphatase 85 U/L (38-126); Anion Gap 12 mmol/L; Blood Urea Nitrogen 14 mg/dL (7-17); Carbon Dioxide 27 mmol/L (22-30); Chloride 102 mmol/L (98-107); Glucose 90 mg/dL (74-99); Lipase 52 U/L (23-300); Magnesium 2.1 mg/dL (1.6-2.3); Non-African American GFR(CKD) >90 (>60 ml/min/1.73 sqM); Sodium 141 mmol/L (137-145); Total Bilirubin 0.5 mg/dL (0.2-1.3)
[2024-11-16] MEDS: KETOROLAC 15 MG/ML 1 ML VIAL IVP STA (13:00)
[2024-11-16] MEDS: ONDANSETRON 4 MG ODT STARTER PACK 2 TAB BTL PO STA (13:01)
[2024-11-16 13:09] VITALS: BP 114/68; PULSE 68
== END 2024-11-16 13:22 | disposition home or self-care (01) ==
LOC: EC 11:00
DX: R07.9 Chest pain, unspecified (principal); R42 Dizziness and giddiness; Z87.891 Personal history of nicotine dependence
CPT/HCPCS: 36415; 93005; 85379; 80053; 83690; 83735; 84484; 85025; 85610; 85730; 84703; 71046; 99285; 96374; 96375 ×2; 96361 ×2; J2060; J2405; J1885; S0119